=== PATIENT | female | born 1975 | race Hispanic/Latino ===

== ENCOUNTER 2018-05-06 22:29 | Emergency (ER) | payer OTHER ==
[~2018-05-06] VITALS: Ht 152.4 cm; Wt 51.3 kg
[2018-05-06] MEDS ORDERED: ONDANSETRON HCL INJ 2 MG/ML VIAL IV STA (22:35)
[2018-05-06] MEDS ORDERED: SODIUM CHLORIDE 0.9% 1000ML 1,000 ML IV STA (22:35)
[2018-05-06] MEDS ORDERED: KETOROLAC TROMETHAMINE 30 MG/ML VIAL IV STA (22:35)
--- OUTSIDE RECORDS SUMMARY | 2018-05-06 22:35 | XMS REPORT | Summary of Care ---
Author Author [facility] Organization [facility] Address Unknown Phone Unavailable Encounter GEO Farias(GRETCHEN) [phone] Date(s): 10/08/16 - 10/08/16 [facility] [address] [employer] provided by [facility] [place] [address]- Discharge Diagnosis: Left-sided weakness Discharge Disposition: Home or Self Care Attending Physician: Yomi Maloney MD Vital Signs 1 2 3 Most recent to oldest [Reference Range]: 152.4 cm (10/08/16 5:58 PM) Height 96.8 DegF (10/08/16 11:15 PM) 97.4 DegF (10/08/16 6:28 PM) Temperature Oral [96.4-99.1 DegF] 97/63 mmHg (10/08/16 11:15 PM) 110/75 mmHg (10/08/16 10:14 PM) 128/85 mmHg (10/08/16 8:24 PM) Blood Pressure [90-140/60-90 mmHg] 17 BRMIN (10/08/16 11:15 PM) 16 BRMIN (10/08/16 10:14 PM) 20 BRMIN (10/08/16 8:24 PM) Respiratory Rate [14-20 BRMIN] 61 bpm (10/08/16 6:18 PM) 63 bpm (10/08/16 6:09 PM) 76 bpm (10/08/16 5:58 PM) Peripheral Pulse Rate [60-100 bpm] 50 kg (10/08/16 5:58 PM) Weight 21.53 m2 (10/08/16 5:58 PM) Body Mass Index Problem List Condition Effective Dates Status Health Status Informant Cancer(Confirmed) Resolved TIA (transient Resolved ischemic attack)(Confirmed) Allergies, Adverse Reactions, Alerts Substance Reaction Severity Status aspirin Active morphine Active Medications ibuprofen 400 mg, Route: PO, Drug form: TAB, ONCE, Dosing Weight 50, kg, Priority: STAT, S tart date: 10/08/16 20:07:00 CDT, Stop date: 10/08/16 20:07:00 CDT Start Date: 10/08/16 Stop Date: 10/08/16 Status: Completed NS (Bolus) IV 1,000 mL, 1,000 ml/hr, Infuse Over: 1 hr, Route: IV, 1,000, Drug form: INJ, ONCE , Priority: STAT, Dosing Weight 50 kg, Start date: 10/08/16 18:44:00 CDT, Durati on: 1 doses or times, Stop date: 10/08/16 18:44:00 CDT Start Date: 10/08/16 Stop Date: 10/08/16 Status: Completed Omnipaque 350mg/ml 150 mL, Route: IVP, Drug Form: SOLN, Dosing Weight 50, kg, ONCALL, STAT, Start d ate: 10/08/16 18:35:00 CDT, Duration: 1 doses or times, Dose=2.2ml/kg, Max dose =100ml -- "To be infused by Radiology Staff ONLY" Start Date: 10/08/16 Stop Date: 10/08/16 Status: Completed Tylenol 650 mg, 2 tab, Route: PO, Drug form: TAB, ONCE, Dosing Weight 50, kg, Priority: STAT, Start date: 10/08/16 21:38:00 CDT, Stop date: 10/08/16 21:38:00 CDT Notes: Do not exceed 4 gm/day. (Same as: Tylenol) Start Date: 10/08/16 Stop Date: 10/08/16 Status: Completed Zofran ODT 4 mg, 1 tab, Route: PO, Drug form: TABDIS, ONCE, Dosing Weight 50, kg, Priority: STAT, Start date: 10/08/16 21:37:00 CDT, Stop date: 10/08/16 21:37:00 CDT Notes: (Same as: Zofran ODT) Start Date: 10/08/16 Stop Date: 10/08/16 Status: Completed Results ELECTROLYTES Most recent to 1 2 oldest [Reference Range]: Sodium Lvl [135-145 139 mEq/L mEq/L] (10/08/16 6:02 PM) Potassium Lvl 4.0 mEq/L [3.5-5.1 mEq/L] (10/08/16 6:02 PM) Chloride Lvl [95-109 107 mEq/L mEq/L] (10/08/16 6:02 PM) CO2 [24-32 mEq/L] 27 mEq/L (10/08/16 6:02 PM) AGAP [10.0-20.0 9.0 mEq/L mEq/L] *LOW* (10/08/16 6:02 PM) CHEM PANEL Most recent to 1 2 oldest [Reference Range]: Creatinine Lvl 0.86 mg/dL [0.50-1.40 mg/dL] (10/08/16 6:02 PM) eGFR 91 mL/min/1.73m2 1 84 mL/min/1.73m2 2 *NA* *NA* (10/08/16 6:03 PM) (10/08/16 6:02 PM) BUN [7-22 mg/dL] 19 mg/dL (10/08/16 6:02 PM) Glucose Lvl [70-99 92 mg/dL mg/dL] (10/08/16 6:02 PM) POC Creatinine 0.8 mg/dL [0.5-1.4 mg/dL] (10/08/16 6:03 PM) Calcium Lvl 8.9 mg/dL [8.5-10.5 mg/dL] (10/08/16 6:02 PM) Lactic Acid Lvl 0.6 mMol/L [0.5-2.2 mMol/L] (10/08/16 10:12 PM) 1Result Comment: The eGFR is calculated using the CKD-EPI formula. In most young, healthy individuals the eGFR will be >90 mL/min/1.73m2. The eGFR declines with age. An eGFR of 60-89 may be normal in some populations, particularly the elderly, for whom the CKD-EPI formula has not been extensively validated. Use of the eGFR is not recommended in the following populations: Individuals with unstable creatinine concentrations, including patients and those with serious co-morbid conditions. Patients with extremes in muscle mass or diet. The data above are obtained from the National Kid[employer] Disease Education Program ( NK[employer]) which additionally recommends that when the eGFR is used in patients with extremes of body mass index for purposes of drug dosing, the eGFR should be mul tiplied by the estimated BMI. 2Result Comment: The eGFR is calculated using the CKD-EPI formula. In most young, healthy individuals the eGFR will be >90 mL/min/1.73m2. The eGFR declines with age. An eGFR of 60-89 may be normal in some populations, particularly the elderly, for whom the CKD-EPI formula has not been extensively validated. Use of the eGFR is not recommended in the following populations: Individuals with unstable creatinine concentrations, including patients and those with serious co-morbid conditions. Patients with extremes in muscle mass or diet. The data above are obtained from the National Kidney Disease Education Program ( NKDEP) which additionally recommends that when the eGFR is used in patients with extremes of body mass index for purposes of drug dosing, the eGFR should be mul tiplied by the estimated BMI. CARDIAC ENZYMES Most recent to 1 2 oldest [Reference Range]: Troponin-I <0.02 ng/mL [0.00-0.40 ng/mL] (10/08/16 6:02 PM) HEMATOLOGY Most recent to 1 2 oldest [Reference Range]: WBC [3.7-10.4 K/CMM] 5.6 K/CMM (10/08/16 6:02 PM) RBC [4.20-5.40 4.21 M/CMM M/CMM] (10/08/16 6:02 PM) Hgb [12.0-16.0 g/dL] 13.7 g/dL (10/08/16 6:02 PM) Hct [36.0-48.0 %] 38.5 % (10/08/16 6:02 PM) MCV [80.0-98.0 fL] 91.5 fL (10/08/16 6:02 PM) MCH [27.0-31.0 pg] 32.6 pg *HI* (10/08/16 6:02 PM) MCHC [32.0-36.0 35.6 g/dL g/dL] (10/08/16 6:02 PM) RDW [11.5-14.5 %] 12.5 % (10/08/16 6:02 PM) Platelet [133-450 223 K/CMM K/CMM] (10/08/16 6:02 PM) MPV [7.4-10.4 fL] 8.3 fL (10/08/16 6:02 PM) Segs [45.0-75.0 %] 56.6 % (10/08/16 6:02 PM) Lymphocytes 31.4 % [20.0-40.0 %] (10/08/16 6:02 PM) Monocytes [2.0-12.0 5.7 % %] (10/08/16 6:02 PM) Eosinophils [0.0-4.0 5.5 % %] *HI* (10/08/16 6:02 PM) Basophils [0.0-1.0 0.8 % %] (10/08/16 6:02 PM) Segs-Bands # 3.1 K/CMM [1.5-8.1 K/CMM] (10/08/16 6:02 PM) Lymphocytes # 1.7 K/CMM [1.0-5.5 K/CMM] (10/08/16 6:02 PM) Monocytes # [0.0-0.8 0.3 K/CMM K/CMM] (10/08/16 6:02 PM) Eosinophils # 0.3 K/CMM [0.0-0.5 K/CMM] (10/08/16 6:02 PM) Immunizations Given and Recorded Vaccine Date Status Refusal Reason tetanus-diphtheria toxoids 05/16/11 Given Procedures Procedure Date Related Diagnosis Body Site Abdominal hysterectomy Tonsillectomy Social History Social History Type Response Substance Abuse Use: Past. Type: Cocaine. Recreational Drug Route: Inhaled. Smoking Status Former smoker; Type: Cigarettes; Previous treatment: Counseling; Ready to change: No; Concerns about tobacco use in household: No; Lives with someone who smokes; Cigarette Smoking Last 365 Days Yes; Reg Smoking Cessation Counseling No Assessment and Plan No data available for this section
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
--- OUTSIDE RECORDS SUMMARY | 2018-05-06 22:35 | XMS REPORT | Summary of Care ---
Author Author [facility] Organization [facility] Address Unknown Phone Unavailable Encounter GEO Farias(GRETCHEN) [id number] Date(s): 04/09/16 - 04/10/16 [facility] [address] [place] [address]- Discharge Diagnosis: Abdominal pain Discharge Diagnosis: Moderate nausea and vomiting Discharge Disposition: Home or Self Care Attending Physician: Devendra Cheatham MD Vital Signs 1 2 3 Most recent to oldest [Reference Range]: 152.4 cm (04/09/16 9:18 PM) Height 98 DegF (04/10/16 2:25 AM) 98.4 DegF (04/10/16 12:40 AM) 98.3 DegF (04/09/16 9:18 PM) Temperature Oral [96.4-99.1 DegF] 130/81 mmHg (04/10/16 2:25 AM) 123/79 mmHg (04/09/16 9:18 PM) Blood Pressure [90-140/60-90 mmHg] 125 mmHg (04/10/16 12:40 AM) Systolic Blood Pressure [90-140 mmHg] 85 mmHg (04/10/16 12:40 AM) Diastolic Blood Pressure [60-90 mmHg] 16 BRMIN (04/10/16 2:25 AM) 18 BRMIN (04/10/16 12:40 AM) 18 BRMIN (04/09/16 9:18 PM) Respiratory Rate [14-20 BRMIN] 76 bpm (04/10/16 2:25 AM) 72 bpm (04/10/16 12:40 AM) 67 bpm (04/09/16 9:18 PM) Peripheral Pulse Rate [60-100 bpm] 50 kg (04/09/16 9:18 PM) Weight 21.53 m2 (04/09/16 9:18 PM) Body Mass Index Problem List Condition Effective Dates Status Health Status Informant TIA (transient Resolved ischemic attack)(Confirmed) Allergies, Adverse Reactions, Alerts Substance Reaction Severity Status aspirin Active morphine Active Medications Bentyl 10 mg oral capsule 10 mg=1 cap, PO, QID-Before Meals, # 28 cap, 0 Refill(s) Start Date: 04/10/16 Stop Date: 04/17/16 Status: Ordered ketOROLAC 15 mg/mL injectable solution 15 mg, Route: IVP, Drug form: INJ, ONCE, Dosing Weight 50, kg, Priority: STAT, S tart date: 04/10/16 0:46:00 CDT, Stop date: 04/10/16 0:46:00 CDT Start Date: 04/10/16 Stop Date: 04/10/16 Status: Discontinued NS (Bolus) IV 1,000 mL, 1,000 ml/hr, Infuse Over: 1 hr, Route: IV, 1,000, Drug form: INJ, ONCE , Priority: STAT, Dosing Weight 50 kg, Start date: 04/09/16 21:23:00 CDT, Durati on: 1 doses or times, Stop date: 04/09/16 21:23:00 CDT Start Date: 04/09/16 Stop Date: 04/09/16 Status: Completed Pepcid 20 mg, 2 mL, Route: IV, Drug form: INJ, ONCE, Dosing Weight 50, kg, Start date: 04/09/16 21:23:00 CDT, Stop date: 04/09/16 21:23:00 CDT Notes: (Same as: Pepcid)Can be dilute in 5-10cc NS IVP: Slow IV push over at le ast 2 minutes. Start Date: 04/09/16 Stop Date: 04/09/16 Status: Completed Phenergan 12.5 mg, 0.5 mL, Route: IM, Drug form: INJ, ONCE, Dosing Weight 50, kg, Priority : STAT, Start date: 04/10/16 0:46:00 CDT, Stop date: 04/10/16 0:46:00 CDT Notes: Do not give IV push. (Same as: Phenergan) Start Date: 04/10/16 Stop Date: 04/10/16 Status: Completed Ultram 50 mg oral tablet 50 mg, 1 tab, Route: PO, Drug form: TAB, ONCE, Dosing Weight 50, kg, Priority: S TAT, Start date: 04/10/16 1:00:00 CDT, Stop date: 04/10/16 1:00:00 CDT Notes: Not to exceed 400mg/day. (Same As: Ultram) Start Date: 04/10/16 Stop Date: 04/10/16 Status: Completed Zofran 4 mg, 2 mL, Route: IVP, Drug form: INJ, ONCE, Dosing Weight 50, kg, Priority: ST AT, Start date: 04/09/16 21:23:00 CDT, Stop date: 04/09/16 21:23:00 CDT Notes: (Same as: Zofran) MEDICATION WASTE Product Size: 4 mgProduct Was vianey: ___ mg Start Date: 04/09/16 Stop Date: 04/09/16 Status: Completed Zofran ODT 4 mg oral tablet, disintegrating 4 mg=1 tab, PO, TID, Dissolve tab under tongue, X 3 day, # 9 tab, 0 Refill(s) Start Date: 04/10/16 Stop Date: 04/13/16 Status: Ordered Results ELECTROLYTES Most recent to 1 oldest [Reference Range]: Sodium Lvl [135-145 141 mEq/L mEq/L] (04/09/16 10:06 PM) Potassium Lvl 3.8 mEq/L [3.5-5.1 mEq/L] (04/09/16 10:06 PM) Chloride Lvl [95-109 106 mEq/L mEq/L] (04/09/16 10:06 PM) CO2 [24-32 mEq/L] 29 mEq/L (04/09/16 10:06 PM) AGAP [10.0-20.0 9.8 mEq/L mEq/L] *LOW* (04/09/16 10:06 PM) CHEM PANEL Most recent to 1 oldest [Reference Range]: Creatinine Lvl 0.99 mg/dL [0.50-1.40 mg/dL] (04/09/16 10:06 PM) eGFR 70 mL/min/1.73m2 1 *NA* (04/09/16 10:06 PM) BUN [7-22 mg/dL] 24 mg/dL *HI* (04/09/16 10:06 PM) B/C Ratio [6-25] 24 (04/09/16 10:06 PM) Glucose Lvl [70-99 93 mg/dL mg/dL] (04/09/16 10:06 PM) Total Protein 7.4 g/dL [6.4-8.4 g/dL] (04/09/16 10:06 PM) Albumin Lvl [3.5-5.0 3.9 g/dL g/dL] (04/09/16 10:06 PM) Globulin [2.7-4.2 3.5 g/dL g/dL] (04/09/16 10:06 PM) A/G Ratio [0.7-1.6] 1.1 (04/09/16 10:06 PM) Calcium Lvl 8.8 mg/dL [8.5-10.5 mg/dL] (04/09/16 10:06 PM) ALT [0-65 unit/L] 20 unit/L (04/09/16 10:06 PM) AST [0-37 unit/L] 12 unit/L (04/09/16 10:06 PM) Alk Phos [39-136 61 unit/L unit/L] (04/09/16 10:06 PM) Bili Total [0.2-1.3 0.3 mg/dL mg/dL] (04/09/16 10:06 PM) Lipase Lvl [73-393 152 unit/L unit/L] (04/09/16 10:06 PM) 1Result Comment: The eGFR is calculated [...] be mul tiplied by the estimated BMI. URINE AND STOOL Most recent to 1 oldest [Reference Range]: UA Turbidity [Clear] Slight Cloudy (04/09/16 10:06 PM) UA Color [Yellow] Yellow *NA* (04/09/16 10:06 PM) UA pH [5.0-8.0] 7.0 (04/09/16 10:06 PM) UA Spec Grav 1.020 [<=1.030] (04/09/16 10:06 PM) UA Glucose [Negative Negative mg/dL mg/dL] (04/09/16 10:06 PM) UA Blood [Negative] Negative (04/09/16 10:06 PM) UA Ketones [Negative Trace mg/dL mg/dL] *ABN* (04/09/16 10:06 PM) UA Protein [Negative Negative mg/dL mg/dL] (04/09/16 10:06 PM) UA Urobilinogen 0.2 EU/dL [0.1-1.0 EU/dL] (04/09/16 10:06 PM) UA Bili [Negative] Negative *NA* (04/09/16 10:06 PM) UA Leuk Est Negative [Negative] (04/09/16 10:06 PM) UA Nitrite Negative [Negative] (04/09/16 10:06 PM) UA WBC [None Seen 0-2 /HPF /HPF] (04/09/16 10:06 PM) UA RBC [0-2 /HPF] 0-2 /HPF (04/09/16 10:06 PM) UA Bacteria [None Occasional /HPF Seen /HPF] (04/09/16 10:06 PM) UA Sq Epi [Few /LPF] Many /LPF *ABN* (04/09/16 10:06 PM) UA Amorph Audra [None Occasional /HPF Seen /HPF] *ABN* (04/09/16 10:06 PM) UA Mucus [None Seen Rare /LPF /LPF] (04/09/16 10:06 PM) Micro? Performed (04/09/16 10:06 PM) HEMATOLOGY Most recent to 1 oldest [Reference Range]: WBC [3.7-10.4 K/CMM] 5.5 K/CMM (04/09/16 10:06 PM) RBC [4.20-5.40 4.48 M/CMM M/CMM] (04/09/16 10:06 PM) Hgb [12.0-16.0 g/dL] 14.1 g/dL (04/09/16 10:06 PM) Hct [36.0-48.0 %] 41.7 % (04/09/16 10:06 PM) MCV [80.0-98.0 fL] 93.2 fL (04/09/16 10:06 PM) MCH [27.0-31.0 pg] 31.4 pg *HI* (04/09/16 10:06 PM) MCHC [32.0-36.0 33.7 g/dL g/dL] (04/09/16 10:06 PM) RDW [11.5-14.5 %] 12.7 % (04/09/16 10:06 PM) Platelet [133-450 219 K/CMM K/CMM] (04/09/16 10:06 PM) MPV [7.4-10.4 fL] 8.7 fL (04/09/16 10:06 PM) Segs [45.0-75.0 %] 58.4 % (04/09/16 10:06 PM) Lymphocytes 30.0 % [20.0-40.0 %] (04/09/16 10:06 PM) Monocytes [2.0-12.0 5.4 % %] (04/09/16 10:06 PM) Eosinophils [0.0-4.0 5.6 % %] *HI* (04/09/16 10:06 PM) Basophils [0.0-1.0 0.6 % %] (04/09/16 10:06 PM) Segs-Bands # 3.2 K/CMM [1.5-8.1 K/CMM] (04/09/16 10:06 PM) Lymphocytes # 1.7 K/CMM [1.0-5.5 K/CMM] (04/09/16 10:06 PM) Monocytes # [0.0-0.8 0.3 K/CMM K/CMM] (04/09/16 10:06 PM) Eosinophils # 0.3 K/CMM [0.0-0.5 K/CMM] (04/09/16 10:06 PM) Immunizations Given and Recorded Vaccine Date [...]
--- OUTSIDE RECORDS SUMMARY | 2018-05-06 22:35 | XMS REPORT | Summary of Care ---
Author Author [facility] Organization [facility] Address Unknown Phone Unavailable Encounter GEO Farias(GRETCHEN) [id number] Date(s): 08/03/16 - 08/04/16 [facility] [address] [place] [address]- Discharge Diagnosis: Abdominal pain, LLQ Discharge Diagnosis: Nausea and vomiting Discharge Diagnosis: Acute diarrhea Discharge Disposition: Home or Self Care Attending Physician: Mohan Wu MD Vital Signs Most recent to 1 2 oldest [Reference Range]: Height 152.4 cm (08/03/16 6:46 PM) Temperature Oral 97.7 DegF 98.1 DegF [96.4-99.1 DegF] (08/04/16 12:29 AM) (08/03/16 6:46 PM) Blood Pressure 116/71 mmHg 141/95 mmHg [90-140/60-90 mmHg] (08/04/16 12:29 AM) *HI* (08/03/16 6:46 PM) Respiratory Rate 20 BRMIN 20 BRMIN [14-20 BRMIN] (08/04/16 12:29 AM) (08/03/16 6:46 PM) Peripheral Pulse 75 bpm 72 bpm Rate [60-100 bpm] (08/04/16 12:29 AM) (08/03/16 6:46 PM) Weight 50 kg (08/03/16 6:46 PM) Body Mass Index 21.53 m2 (08/03/16 6:46 PM) Problem List Condition Effective Dates Status Health Status Informant Cancer(Confirmed) Resolved TIA (transient Resolved ischemic attack)(Confirmed) Allergies, Adverse Reactions, Alerts Substance Reaction Severity Status aspirin Active morphine Active Medications acetaminophen-hydrocodone 325 mg-5 mg oral tablet 1 tab, Route: PO, Drug Form: TAB, Dosing Weight 50, kg, ONCE, STAT, Start date: 08/04/16 0:07:00 [employer], Stop date: 08/04/16 0:07:00 [employer] Notes: (Same as: [place] 325/5) Do not exceed 4gm/day of acetaminophen. Start Date: 08/04/16 Stop Date: 08/04/16 Status: Completed ketOROLAC 15 mg, 0.5 mL, Route: IVP, Drug form: INJ, ONCE, Dosing Weight 50, kg, Priority: STAT, Start date: 08/03/16 21:53:00 [employer], Stop date: 08/03/16 21:53:00 [employer] Notes: (Same as:Toradol) IV bolus must be given >15 seconds. Give IM administration slowly and deeply into the muscle.Not for use > 4 days MEDICATION WASTE Product Size: 30 mgProduct Wasted: ___ mg Start Date: 08/03/16 Stop Date: 08/03/16 Status: Completed ondansetron 4 mg, 2 mL, Route: IVP, Drug form: INJ, ONCE, Dosing Weight 50, kg, Priority: ST AT, Start date: 08/03/16 21:53:00 [employer], Stop date: 08/03/16 21:53:00 [employer] Notes: (Same as: Zofran) MEDICATION WASTE Product Size: 4 mgProduct Was vianey: ___ mg Start Date: 08/03/16 Stop Date: 08/03/16 Status: Completed Saline Flush 0.9% 10 mL, Route: IVP, Drug Form: INJ, Dosing Weight 50, kg, PRN, PRN Line Flush, St art date: 08/03/16 19:06:00 [employer], Duration: 30 day, Stop date: 09/02/16 19:05:00 [employer] Notes: Same as: BD Posiflush Sterile Start Date: 08/03/16 Stop Date: 08/04/16 Status: Discontinued Sodium Chloride 0.9% (Bolus) IV 1,000 mL, 1000 ml/hr, Infuse Over: 1 hr, Route: IV, 1,000, Drug form: INJ, ONCE, Priority: STAT, Dosing Weight 50 kg, Start date: 08/03/16 21:53:00 [employer], Duratio n: 1 doses or times, Stop date: 08/03/16 21:53:00 [employer] Start Date: 08/03/16 Stop Date: 08/03/16 Status: Completed tramadol 50 mg oral tablet 50 mg, PO, Q4-6H, PRN Pain, X 4 day, # 20 tab, 0 Refill(s) Start Date: 08/04/16 Stop Date: 08/08/16 Status: Ordered Tylenol with Codeine #3 oral tablet 1 tab, PO, Q4H, PRN Pain, # 24 tab, 0 Refill(s) Start Date: 08/04/16 Stop Date: 08/04/16 Status: Completed Zofran ODT 4 mg oral tablet, disintegrating 4 mg=1 tab, PO, Q8H, PRN Nausea and Vomiting, Dissolve tab under tongue, # 10 ta b, 0 Refill(s) Start Date: 08/04/16 Stop Date: 08/04/16 Status: Completed Results ELECTROLYTES Most recent to 1 oldest [Reference Range]: Sodium Lvl [135-145 142 mEq/L mEq/L] (08/03/16 9:21 PM) Potassium Lvl 3.6 mEq/L [3.5-5.1 mEq/L] (08/03/16 9:21 PM) Chloride Lvl [95-109 106 mEq/L mEq/L] (08/03/16 9:21 PM) CO2 [24-32 mEq/L] 29 mEq/L (08/03/16 9:21 PM) AGAP [10.0-20.0 10.6 mEq/L mEq/L] (08/03/16 9:21 PM) CHEM PANEL Most recent to 1 oldest [Reference Range]: Creatinine Lvl 0.73 mg/dL [0.50-1.40 mg/dL] (08/03/16 9:21 PM) eGFR 102 mL/min/1.73m2 1 *NA* (08/03/16 9:21 PM) BUN [7-22 mg/dL] 22 mg/dL (08/03/16 9:21 PM) B/C Ratio [6-25] 30 *HI* (08/03/16 9:21 PM) Glucose Lvl [70-99 117 mg/dL mg/dL] *HI* (08/03/16 9:21 PM) Total Protein 6.7 g/dL [6.4-8.4 g/dL] (08/03/16 9:21 PM) Albumin Lvl [3.5-5.0 3.4 g/dL g/dL] *LOW* (08/03/16 PM) Globulin [2.7-4.2 3.3 g/dL g/dL] (08/03/16 9:21 PM) A/G Ratio [0.7-1.6] 1.0 (08/03/16 PM) Calcium Lvl 8.0 mg/dL [8.5-10.5 mg/dL] *LOW* (08/03/16: PM) ALT [0-65 unit/L] 22 unit/L (08/03/16 PM) AST [0-37 unit/L] 16 unit/L (08/03/16 PM) Alk Phos [39-136 48 unit/L unit/L] (08/03/16 PM) Bili Total [0.2-1.3 0.3 mg/dL mg/dL] (08/03/16 PM) Lipase Lvl [73-393 202 unit/L unit/L] (08/03/16 PM) 1Result Comment: The eGFR is calculated [...] be mul tiplied by the estimated BMI. ENDOCRINOLOGY Most recent to 1 oldest [Reference Range]: S Preg [Negative] Negative *NA* (08/03/16 9:21 PM) URINE AND STOOL Most recent to 1 oldest [Reference Range]: UA Turbidity [Clear] Clear (2/9/17 9:21 PM) UA Color [Yellow] Yellow *NA* (08/03/16 9:21 PM) UA pH [5.0-8.0] 8.0 (08/03/16 9:21 PM) UA Spec Grav 1.010 [<=1.030] (08/03/16 9:21 PM) UA Glucose [Negative Negative mg/dL mg/dL] (08/03/16 9:21 PM) UA Blood [Negative] Negative (08/03/16 9:21 PM) UA Ketones [Negative Negative mg/dL mg/dL] *NA* (08/03/16:21 PM) UA Protein [Negative Negative mg/dL mg/dL] (08/03/16 9:21 PM) UA Urobilinogen 0.2 EU/dL [0.1-1.0 EU/dL] (08/03/16 9:21 PM) UA Bili [Negative] Negative *NA* (08/03/16:21 PM) UA Leuk Est Negative [Negative] (08/03/16:21 PM) UA Nitrite Negative [Negative] (08/03/16 9:21 PM) UA WBC [None Seen 0-2 /HPF /HPF] (08/03/16 9:21 PM) UA RBC [0-2 /HPF] 0-2 /HPF (08/03/16 9:21 PM) UA Bacteria [None Few /HPF Seen /HPF] (08/03/16 9:21 PM) UA Sq Epi [Few /LPF] Few /LPF (08/03/16 9:21 PM) UA Amorph Audra [None Occasional /HPF Seen /HPF] *ABN* (08/03/16 9:21 PM) UA Mucus [None Seen Few /LPF /LPF] (08/03/16 9:21 PM) HEMATOLOGY Most recent to 1 oldest [Reference Range]: WBC [3.7-10.4 K/CMM] 5.3 K/CMM (08/03/16 9:21 PM) RBC [4.20-5.40 3.92 M/CMM M/CMM] *LOW* (08/03/16 9:21 PM) Hgb [12.0-16.0 g/dL] 12.7 g/dL (08/03/16 9:21 PM) Hct [36.0-48.0 %] 36.3 % (08/03/16 9:21 PM) MCV [80.0-98.0 fL] 92.5 fL (08/03/16 9:21 PM) MCH [27.0-31.0 pg] 32.4 pg *HI* (08/03/16 9:21 PM) MCHC [32.0-36.0 35.1 g/dL g/dL] (08/03/16 9:21 PM) RDW [11.5-14.5 %] 12.2 % (08/03/16 9:21 PM) Platelet [133-450 218 K/CMM K/CMM] (08/03/16 9:21 PM) MPV [7.4-10.4 fL] 8.1 fL (08/03/16 9:21 PM) Segs [45.0-75.0 %] 49.2 % (08/03/16 9:21 PM) Lymphocytes 40.6 % [20.0-40.0 %] *HI* (08/03/16 9:21 PM) Monocytes [2.0-12.0 5.1 % %] (08/03/16 9:21 PM) Eosinophils [0.0-4.0 4.7 % %] *HI* (08/03/16 9:21 PM) Basophils [0.0-1.0 0.4 % %] (08/03/16 9:21 PM) Segs-Bands # 2.6 K/CMM [1.5-8.1 K/CMM] (08/03/16 9:21 PM) Lymphocytes # 2.2 K/CMM [1.0-5.5 K/CMM] (08/03/16 9:21 PM) Monocytes # [0.0-0.8 0.3 K/CMM K/CMM] (08/03/16 9:21 PM) Eosinophils # 0.2 K/CMM [0.0-0.5 K/CMM] (08/03/16 9:21 PM) Immunizations Given and Recorded Vaccine Date Status Refusal Reason tetanus-diphtheria toxoids 05/16/11 Given Procedures Procedure Date Related Diagnosis Body Site Abdominal hysterectomy Tonsillectomy Social History Social History Type Response Substance Abuse Use: Past. Type: Cocaine. Recreational Drug Route: Inhaled. Smoking Status Never smoker; Type: Cigarettes; Previous treatment: None; Ready to change: No; Concerns about tobacco use in household: No; Exposure to Tobacco Smoke None; Cigarette Smoking Last 365 Days No; Reg Smoking Cessation Counseling No Assessment and Plan No data available for this section
--- OUTSIDE RECORDS SUMMARY | 2018-05-06 22:35 | XMS REPORT | Summary of Care ---
Author Author [facility] Organization [facility] Address Unknown Phone Unavailable Encounter HQ Soco_chris(FIN) [id number] Date(s): 11/23/17 - 11/23/17 [facility] [address] [place] [id number] Discharge Disposition: Home or Self Care Attending Physician: Darian Villalta MD Referring Physician: Darian Villalta MD Vital Signs No data available for this section Problem List Condition Effective Dates Status Health Status Informant Cancer(Confirmed) Resolved TIA (transient Resolved ischemic attack)(Confirmed) Allergies, Adverse Reactions, Alerts Substance Reaction Severity Status morphine Active aspirin Active Medications No data available for this section Results No data available for this section Immunizations Given and Recorded Vaccine Date Status Refusal Reason tetanus-diphtheria toxoids 05/16/11 Given Procedures Procedure Date Related Diagnosis Body Site Status Abdominal hysterectomy Completed Tonsillectomy Completed Social History Social History Type Response Substance Abuse Use: Past. Type: Cocaine. Recreational Drug Route: Inhaled. Smoking Status Former smoker; Type: Cigarettes; Previous treatment: Counseling; Ready to change: No; Concerns about tobacco use in household: No; Lives with someone who smokes; Cigarette Smoking Last 365 Days Yes; Reg Smoking Cessation Counseling No entered on: 10/08/16 Assessment and Plan No data available for this section
--- OUTSIDE RECORDS SUMMARY | 2018-05-06 22:35 | XMS REPORT | Summary of Care ---
Author Author [facility] Organization [facility] Address Unknown Phone Unavailable Encounter GEO Farias(GRETCHEN) [id number] Date(s): 04/07/16 - 04/07/16 [facility] [address] [place] [address]- [phone] Discharge Diagnosis: Abdominal pain Discharge Diagnosis: Constipation Discharge Diagnosis: Bacterial vaginosis Discharge Disposition: Home or Self Care Attending Physician: Shankar Bowman DO Vital Signs Most recent to 1 2 oldest [Reference Range]: Height 152.4 cm (04/07/16 7:48 PM) Temperature Oral 98.0 DegF 97.5 DegF [96.4-99.1 DegF] (04/07/16 11:36 PM) (04/07/16 7:48 PM) Blood Pressure 133/77 mmHg [90-140/60-90 mmHg] (04/07/16 7:48 PM) Systolic Blood 145 mmHg Pressure [90-140 *HI* mmHg] (04/07/16 11:36 PM) Diastolic Blood 86 mmHg Pressure [60-90 (04/07/16 11:36 PM) mmHg] Respiratory Rate 18 BRMIN 19 BRMIN [14-20 BRMIN] (04/07/16 11:36 PM) (04/07/16 7:48 PM) Peripheral Pulse 67 bpm 65 bpm Rate [60-100 bpm] (04/07/16 11:36 PM) (04/07/16 7:48 PM) Weight 50 kg (04/07/16 7:48 PM) Body Mass Index 21.53 m2 (04/07/16 7:48 PM) Problem List Condition Effective Dates Status Health Status Informant TIA (transient Resolved ischemic attack)(Confirmed) Allergies, Adverse Reactions, Alerts Substance Reaction Severity Status aspirin Active morphine Active Medications Dilaudid 0.5 mg, 0.25 mL, Route: IVP, Drug form: INJ, ONCE, Dosing Weight 50, kg, Priorit y: STAT, Start date: 04/07/16 22:10:00 CDT, Stop date: 04/07/16 22:10:00 CDT Notes: (Same as: Dilaudid) Start Date: 04/07/16 Stop Date: 04/07/16 Status: Completed Flagyl 500 mg oral tablet 500 mg=1 tab, PO, BID, X 7 day, # 14 tab, 0 Refill(s) Start Date: 04/07/16 Stop Date: 04/14/16 Status: Ordered ketOROLAC 15 mg, 0.5 mL, Route: IVP, Drug form: INJ, ONCE, Dosing Weight 50, kg, Priority: STAT, Start date: 04/07/16 19:55:00 CDT, Stop date: 04/07/16 19:55:00 CDT Notes: (Same as:Toradol) IV bolus must be given >15 seconds. Give IM administration slowly and deeply into the muscle.Not for use > 4 days MEDICATION WASTE Product Size: 30 mgProduct Wasted: ___ mg Start Date: 04/07/16 Stop Date: 04/07/16 Status: Completed NS (Bolus) IV 1,000 mL, 1,000 ml/hr, Infuse Over: 1 hr, Route: IV, 1,000, Drug form: INJ, ONCE , Priority: STAT, Dosing Weight 50 kg, Start date: 04/07/16 20:04:00 CDT, Durati on: 1 doses or times, Stop date: 04/07/16 20:04:00 CDT Start Date: 04/07/16 Stop Date: 04/07/16 Status: Completed Omnipaque 300 100 mL, Route: IV, Drug Form: SOLN, ONCALL, Start date: 04/07/16 22:00:00 CDT, D uration: 2 day, Stop date: 04/09/16 21:59:00 CDT Notes: (Same as:Omnipaque 300).WASTE: F/P - Black; E - Municipal Trash Bin Start Date: 04/07/16 Stop Date: 04/07/16 Status: Completed ondansetron 4 mg, 2 mL, Route: IVP, Drug form: INJ, ONCE, Dosing Weight 42.727, kg, Priority : STAT, Start date: 04/07/16 19:54:00 CDT, Stop date: 04/07/16 19:54:00 CDT Notes: (Same as: Elizabeth) MEDICATION WASTE Product Size: 4 mgProduct Was vianey: ___ mg Start Date: 04/07/16 Stop Date: 04/07/16 Status: Completed Saline Flush 0.9% 10 mL, Route: IVP, Drug Form: INJ, Dosing Weight 42.727, kg, PRN, PRN Line Flush , Start date: 04/07/16 19:54:00 CDT, Duration: 30 day, Stop date: 05/07/16 18:53 :00 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 Notes: Same as: BD Posiflush Sterile Start Date: 04/07/16 Stop Date: 04/08/16 Status: Discontinued Sodium Chloride 0.9% (Bolus) IV 1,000 mL, 2,000 ml/hr, Infuse Over: 30 minutes, Route: IV, 1,000, Drug form: INJ , ONCE, Priority: STAT, Dosing Weight 42.727 kg, Start date: 04/07/16 19:54:00 C DT, Duration: 1 doses or times, Stop date: 04/07/16 19:54:00 CDT Start Date: 04/07/16 Stop Date: 04/07/16 Status: Completed tramadol 50 mg oral tablet 50 mg=1 tab, PO, Q8H, PRN Pain, X 5 day, # 15 tab, 0 Refill(s) Start Date: 04/07/16 Stop Date: 04/12/16 Status: Ordered Results ELECTROLYTES Most recent to 1 oldest [Reference Range]: Sodium Lvl [135-145 141 mEq/L mEq/L] (04/07/16 8:13 PM) Potassium Lvl 3.9 mEq/L [3.5-5.1 mEq/L] (04/07/16 8:13 PM) Chloride Lvl [95-109 106 mEq/L mEq/L] (04/07/16 8:13 PM) CO2 [24-32 mEq/L] 27 mEq/L (04/07/16 8:13 PM) AGAP [10.0-20.0 11.9 mEq/L mEq/L] (04/07/16 8:13 PM) CHEM PANEL Most recent to 1 oldest [Reference Range]: Creatinine Lvl 0.89 mg/dL [0.50-1.40 mg/dL] (04/07/16 8:13 PM) eGFR 80 mL/min/1.73m2 1 *NA* (04/07/16 8:13 PM) BUN [7-22 mg/dL] 21 mg/dL (04/07/16 8:13 PM) B/C Ratio [6-25] 24 (04/07/16 8:13 PM) Glucose Lvl [70-99 88 mg/dL mg/dL] (04/07/16 8:13 PM) Total Protein 7.4 g/dL [6.4-8.4 g/dL] (04/07/16 8:13 PM) Albumin Lvl [3.5-5.0 3.8 g/dL g/dL] (04/07/16 8:13 PM) Globulin [2.7-4.2 3.6 g/dL g/dL] (04/07/16 8:13 PM) A/G Ratio [0.7-1.6] 1.1 (04/07/16 8:13 PM) Calcium Lvl 9.1 mg/dL [8.5-10.5 mg/dL] (04/07/16 8:13 PM) ALT [0-65 unit/L] 24 unit/L (04/07/16 8:13 PM) AST [0-37 unit/L] 18 unit/L (04/07/16 8:13 PM) Alk Phos [39-136 66 unit/L unit/L] (04/07/16 8:13 PM) Bili Total [0.2-1.3 0.2 mg/dL mg/dL] (04/07/16 8:13 PM) Lipase Lvl [73-393 272 unit/L unit/L] (04/07/16 8:13 PM) 1Result Comment: The eGFR is calculated [...] oldest [Reference Range]: UA Turbidity [Clear] Clear (04/07/16 9:07 PM) UA Color [Yellow] Yellow *NA* (04/07/16 9:07 PM) UA pH [5.0-8.0] 8.5 *HI* (04/07/16 9:07 PM) UA Spec Grav 1.015 [<=1.030] (04/07/16 9:07 PM) UA Glucose [Negative Negative mg/dL mg/dL] (04/07/16 9:07 PM) UA Blood [Negative] Negative (04/07/16 9:07 PM) UA Ketones [Negative Negative mg/dL mg/dL] *NA* (04/07/16 9:07 PM) UA Protein [Negative Negative mg/dL mg/dL] (04/07/16 9:07 PM) UA Urobilinogen 0.2 EU/dL [0.1-1.0 EU/dL] (04/07/16 9:07 PM) UA Bili [Negative] Negative *NA* (04/07/16 9:07 PM) UA Leuk Est Negative [Negative] (04/07/16 9:07 PM) UA Nitrite Negative [Negative] (04/07/16 9:07 PM) UA WBC [None Seen 0-2 /HPF /HPF] (04/07/16 9:07 PM) UA RBC [0-2 /HPF] 0-2 /HPF (04/07/16 9:07 PM) UA Bacteria [None Occasional /HPF Seen /HPF] (04/07/16 9:07 PM) UA Sq Epi [Few /LPF] Moderate /LPF *ABN* (04/07/16 9:07 PM) HEMATOLOGY Most recent to 1 oldest [Reference Range]: WBC [3.7-10.4 K/CMM] 6.5 K/CMM (04/07/16 8:13 PM) RBC [4.20-5.40 4.42 M/CMM M/CMM] (04/07/16 8:13 PM) Hgb [12.0-16.0 g/dL] 14.2 g/dL (04/07/16 8:13 PM) Hct [36.0-48.0 %] 41.0 % (04/07/16 8:13 PM) MCV [80.0-98.0 fL] 92.6 fL (04/07/16 8:13 PM) MCH [27.0-31.0 pg] 32.1 pg *HI* (04/07/16 PM) MCHC [32.0-36.0 34.6 g/dL g/dL] (04/07/16 8:13 PM) RDW [11.5-14.5 %] 12.5 % (04/07/16 8:13 PM) Platelet [133-450 258 K/CMM K/CMM] (04/07/16 8:13 PM) MPV [7.4-10.4 fL] 9.2 fL (04/07/16 8:13 PM) Segs [45.0-75.0 %] 52.2 % (04/07/16 8:13 PM) Lymphocytes 36.3 % [20.0-40.0 %] (04/07/16 8:13 PM) Monocytes [2.0-12.0 5.6 % %] (04/07/16 8:13 PM) Eosinophils [0.0-4.0 5.2 % %] *HI* (04/07/16:13 PM) Basophils [0.0-1.0 0.7 % %] (04/07/16 8:13 PM) Segs-Bands # 3.4 K/CMM [1.5-8.1 K/CMM] (04/07/16 8:13 PM) Lymphocytes # 2.4 K/CMM [1.0-5.5 K/CMM] (04/07/16 8:13 PM) Monocytes # [0.0-0.8 0.4 K/CMM K/CMM] (04/07/16 8:13 PM) Eosinophils # 0.3 K/CMM [0.0-0.5 K/CMM] (04/07/16 8:13 PM) PT [12.0-14.7 12.3 seconds seconds] (04/07/16 8:13 PM) INR [0.85-1.17] 0.90 (04/07/16 8:13 PM) PTT [22.9-35.8 30.1 seconds seconds] (04/07/16 8:13 PM) Immunizations Given and Recorded Vaccine Date Status Refusal Reason tetanus-diphtheria toxoids 05/16/11 Given Procedures Procedure Date Related Diagnosis Body Site Abdominal hysterectomy Tonsillectomy Social History Social History Type Response Substance Abuse Use: Past. Type: Cocaine. Recreational Drug Route: Inhaled. Smoking Status Current every day smoker; Type: Cigarettes; Previous treatment: Counseling; Ready to change: No; Concerns about tobacco use in household: No; Lives with someone who smokes; Cigarette Smoking Last 365 Days Yes; Reg Smoking Cessation Counseling Yes Assessment and Plan No data available for this section
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
--- OUTSIDE RECORDS SUMMARY | 2018-05-06 22:35 | XMS REPORT | Summary of Care ---
Author Author [facility] Organization [facility] Address Unknown Phone Unavailable Encounter GEO Farias(GRETCHEN) [id number] Date(s): 06/21/16 - 06/22/16 [facility] [address] [place] [address]- Discharge Diagnosis: Cyst, ovarian Discharge Disposition: Home or Self Care Attending Physician: Bryan Dupree MD Vital Signs 1 2 3 Most recent to oldest [Reference Range]: 98.1 DegF (06/22/16 12:24 AM) Temperature Oral [96.4-99.1 DegF] 133/83 mmHg (06/22/16 9:13 AM) 117/80 mmHg (06/22/16 6:37 AM) 117/80 mmHg (06/22/16 6:33 AM) Blood Pressure [90-140/60-90 mmHg] 17 BRMIN (06/22/16 6:37 AM) 17 BRMIN (06/22/16 6:33 AM) 16 BRMIN (06/22/16 12:24 AM) Respiratory Rate [14-20 BRMIN] 80 bpm (06/22/16 9:13 AM) 78 bpm (06/22/16 6:37 AM) 75 bpm (06/22/16 6:33 AM) Peripheral Pulse Rate [60-100 bpm] 50 kg (06/22/16 12:24 AM) Weight Problem List Condition Effective Dates Status Health Status Informant Cancer(Confirmed) Resolved TIA (transient Resolved ischemic attack)(Confirmed) Allergies, Adverse Reactions, Alerts Substance Reaction Severity Status aspirin Active morphine Active Medications Dilaudid 0.5 mg, 0.25 mL, Route: IVP, Drug form: INJ, ONCE, Dosing Weight 50, kg, Priorit y: STAT, Start date: 06/22/16 6:36:00 ELECTROLYSIS INVESTIGATOR, Stop date: 06/22/16 6:36:00 ELECTROLYSIS INVESTIGATOR Notes: Same as Dilaudid Start Date: 06/22/16 Stop Date: 06/22/16 Status: Completed NS (Bolus) IV 1,000 mL, 1,000 ml/hr, Infuse Over: 1 hr, Route: IV, 1,000, Drug form: INJ, ONCE , Priority: STAT, Dosing Weight 50 kg, Start date: 06/22/16 6:35:00 ELECTROLYSIS INVESTIGATOR, Duratio n: 1 doses or times, Stop date: 06/22/16 6:35:00 ELECTROLYSIS INVESTIGATOR Start Date: 06/22/16 Stop Date: 06/22/16 Status: Completed Omnipaque 300 100 mL, 200 ml/hr, Route: IV, Drug Form: SOLN, ONCALL, Start date: 06/22/16 8:00 :00 ELECTROLYSIS INVESTIGATOR, Duration: 30 day, Stop date: 07/22/16 7:59:00 ELECTROLYSIS INVESTIGATOR Notes: (Same as:Omnipaque 300).WASTE: F/P - Black; E - Municipal Trash Bin Start Date: 06/22/16 Stop Date: 06/22/16 Status: Completed tramadol 50 mg oral tablet 50 mg=1 tab, PO, Q6H, PRN Pain, X 10 day, # 40 tab, 0 Refill(s) Start Date: 06/22/16 Stop Date: 07/02/16 Status: Ordered Zofran 4 mg, 2 mL, Route: IVP, Drug form: INJ, ONCE, Dosing Weight 50, kg, Priority: ST AT, Start date: 06/22/16 6:36:00 ELECTROLYSIS INVESTIGATOR, Stop date: 06/22/16 6:36:00 ELECTROLYSIS INVESTIGATOR Notes: (Same as: Zofran) MEDICATION WASTE Product Size: 4 mgProduct Was vianey: ___ mg Start Date: 06/22/16 Stop Date: 06/22/16 Status: Completed Zofran 4 mg, 2 mL, Route: IVP, Drug form: INJ, ONCE, Dosing Weight 50, kg, Priority: ST AT, Start date: 06/22/16 9:16:00 ELECTROLYSIS INVESTIGATOR, Stop date: 06/22/16 9:16:00 ELECTROLYSIS INVESTIGATOR Notes: (Same as: Zofran) MEDICATION WASTE Product Size: 4 mgProduct Was vianey: ___ mg Start Date: 06/22/16 Stop Date: 06/22/16 Status: Completed Results ELECTROLYTES Most recent to 1 oldest [Reference Range]: Sodium Lvl [135-145 140 mEq/L mEq/L] (06/22/16 6:23 AM) Potassium Lvl 3.7 mEq/L [3.5-5.1 mEq/L] (06/22/16 6:23 AM) Chloride Lvl [95-109 108 mEq/L mEq/L] (06/22/16 6:23 AM) CO2 [24-32 mEq/L] 23 mEq/L *LOW* (06/22/16 6:23 AM) AGAP [10.0-20.0 12.7 mEq/L mEq/L] (06/22/16 6:23 AM) CHEM PANEL Most recent to 1 oldest [Reference Range]: Creatinine Lvl 0.58 mg/dL [0.50-1.40 mg/dL] (06/22/16 6:23 AM) eGFR 114 mL/min/1.73m2 1 *NA* (06/22/16 6:23 AM) BUN [7-22 mg/dL] 21 mg/dL (06/22/16 6:23 AM) B/C Ratio [6-25] 36 *HI* (06/22/16 6:23 AM) Glucose Lvl [70-99 108 mg/dL mg/dL] *HI* (06/22/16 6:23 AM) Total Protein 6.5 g/dL [6.4-8.4 g/dL] (06/22/16 6:23 AM) Albumin Lvl [3.5-5.0 3.5 g/dL g/dL] (06/22/16 6:23 AM) Globulin [2.7-4.2 3.0 g/dL g/dL] (06/22/16 6:23 AM) A/G Ratio [0.7-1.6] 1.2 (06/22/16 6:23 AM) Calcium Lvl 8.3 mg/dL [8.5-10.5 mg/dL] *LOW* (06/22/16 6:23 AM) ALT [0-65 unit/L] 20 unit/L (06/22/16 6:23 AM) AST [0-37 unit/L] 17 unit/L (06/22/16 6:23 AM) Alk Phos [39-136 51 unit/L unit/L] (06/22/16 6:23 AM) Bili Total [0.2-1.3 0.4 mg/dL mg/dL] (06/22/16 6:23 AM) Lipase Lvl [73-393 219 unit/L unit/L] (06/22/16 6:23 AM) 1Result Comment: The eGFR is calculated using [...] [Reference Range]: S Preg [Negative] Negative *NA* (06/22/16 6:23 AM) URINE AND STOOL Most recent to 1 oldest [Reference Range]: UA Turbidity [Clear] Slight Cloudy (06/22/16 6:23 AM) UA Color [Yellow] Yellow *NA* (06/22/16 6:23 AM) UA pH [5.0-8.0] 5.5 (06/22/16 6:23 AM) UA Spec Grav >=1.030 [<=1.030] *ABN* (06/22/16 6:23 AM) UA Glucose Negative [Negative] (06/22/16 6:23 AM) UA Blood [Negative] Small *ABN* (06/22/16 6:23 AM) UA Ketones Negative [Negative] *NA* (06/22/16 6:23 AM) UA Protein Negative [Negative] (06/22/16 6:23 AM) UA Urobilinogen 0.2 EU/dL [0.1-1.0 EU/dL] (06/22/16 6:23 AM) UA Bili [Negative] Negative *NA* (06/22/16 6:23 AM) UA Leuk Est Negative [Negative] (06/22/16 6:23 AM) UA Nitrite Negative [Negative] (06/22/16 6:23 AM) UA WBC [None Seen 0-2 /HPF /HPF] (06/22/16 6:23 AM) UA RBC [0-2 /HPF] 3-5 /HPF *ABN* (06/22/16 6:23 AM) UA Bacteria [None Moderate /HPF Seen /HPF] (06/22/16 6:23 AM) UA Sq Epi [Few /LPF] Many /LPF *ABN* (06/22/16 6:23 AM) UA Mucus [None Seen Few /LPF /LPF] (06/22/16 6:23 AM) HEMATOLOGY Most recent to 1 oldest [Reference Range]: WBC [3.7-10.4 K/CMM] 5.1 K/CMM (06/22/16 6:23 AM) RBC [4.20-5.40 4.11 M/CMM M/CMM] *LOW* (06/22/16 6:23 AM) Hgb [12.0-16.0 g/dL] 13.2 g/dL (06/22/16 6:23 AM) Hct [36.0-48.0 %] 38.3 % (06/22/16 6:23 AM) MCV [80.0-98.0 fL] 93.2 fL (06/22/16 6:23 AM) MCH [27.0-31.0 pg] 32.2 pg *HI* (06/22/16 6:23 AM) MCHC [32.0-36.0 34.6 g/dL g/dL] (06/22/16 6:23 AM) RDW [11.5-14.5 %] 12.8 % (06/22/16 6:23 AM) Platelet [133-450 189 K/CMM K/CMM] (06/22/16 6:23 AM) MPV [7.4-10.4 fL] 8.1 fL (06/22/16 6:23 AM) Segs [45.0-75.0 %] 45.9 % (06/22/16 6:23 AM) Lymphocytes 38.6 % [20.0-40.0 %] (06/22/16 6:23 AM) Monocytes [2.0-12.0 7.4 % %] (06/22/16 6:23 AM) Eosinophils [0.0-4.0 7.5 % %] *HI* (06/22/16 6:23 AM) Basophils [0.0-1.0 0.6 % %] (06/22/16 6:23 AM) Segs-Bands # 2.3 K/CMM [1.5-8.1 K/CMM] (06/22/16 6:23 AM) Lymphocytes # 2.0 K/CMM [1.0-5.5 K/CMM] (06/22/16 6:23 AM) Monocytes # [0.0-0.8 0.4 K/CMM K/CMM] (06/22/16 6:23 AM) Eosinophils # 0.4 K/CMM [0.0-0.5 K/CMM] (06/22/16 6:23 AM) Immunizations Given and Recorded Vaccine Date Status [...]
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
--- OUTSIDE RECORDS SUMMARY | 2018-05-06 22:36 | XMS REPORT ---
Demographics Address [address] [place] [address] Preferred Language Unknown Marital Status Unknown Moravian Affiliation Unknown Race Unknown Ethnic Group Unknown Author [facility] Address Unknown Phone Unavailable Care Team Providers Care Lapel Baster Name Role Phone Unavailable Unavailable Problems This patient has no known problems. Allergies, Adverse Reactions, Alerts This patient has no known allergies or adverse reactions. Medications This patient has no known medications. Encounters Start Date/Time End Date/Time Encounter Type Admission Type Attending [facility] Facility Care Department Encounter ID 2017-12-21 05:00:13 2017-12-21 05:00:13 Emergency [facility] [id number] 2017-12-21 00:00:00 2017-12-21 00:00:00 Emergency [facility] [id number] 2017-10-28 15:34:00 2017-10-28 15:34:00 Emergency [facility] [id number] 2017-10-28 15:28:57 2017-10-28 15:28:57 Emergency [facility] [id number] 2017-10-28 15:04:37 2017-10-28 15:04:37 Emergency [facility] [id number]
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
[2018-05-06 22:45] LABS: BASOPHILS % 0.4 % (0.0-1.0); EOSINOPHILS # (AUTO) 0.3 (0.0-0.4); EOSINOPHILS % 6.1 % (0.0-6.0); HEMATOCRIT 41.9 % (34.2-44.1); HEMOGLOBIN 14.5 g/dL (12.0-16.0); LYMPHOCYTES # (AUTO) 2.1 (1.0-3.2); LYMPHOCYTES % 41.6 % (18.0-39.1); MEAN CORPUSCULAR HEMOGLOBIN 31.7 pg (28-32); MEAN CORPUSCULAR HGB CONC 34.6 g/dL (31-35); MEAN CORPUSCULAR VOLUME 91.7 fL (81-99); MONOCYTES # (AUTO) 0.3 (0.2-0.8); MONOCYTES % 5.1 % (4.4-11.3); NEUTROPHILS # (AUTO) 2.3 (2.1-6.9); NEUTROPHILS % 46.6 % (38.7-80.0); PLATELET COUNT 252 x10e3/uL (140-360); RED BLOOD COUNT 4.57 x10e6/uL (3.6-5.1); RED CELL DISTRIBUTION WIDTH 11.6 % (11.7-14.4)
[2018-05-06] MEDS ORDERED: LIDOCAINE HCL 2% JELLY 5 ML TUBE TOP ONE (22:45)
[2018-05-06] MEDS ORDERED: LIDOCAINE JELLY 2% 10ML URO-JET ONE (22:45)
[2018-05-06] MEDS ORDERED: DIATRIZOATE MEGL/DIATRIZOA SOD 30 ML BTL PO ONE (22:53)
[2018-05-06 23:01] LABS: CLARITY,URINE SL CLOUDY (CLEAR); COLOR,URINE YELLOW (YELLOW)
[2018-05-06 23:02] LABS: BILIRUBIN,URINE NEGATIVE (NEGATIVE); KETONES,URINE NEGATIVE (NEGATIVE); LEUKOCYTE ESTERASE ,URINE NEGATIVE (NEGATIVE); NITRITE,URINE NEGATIVE (NEGATIVE); PROTEIN,URINE DIPSTICK NEGATIVE (NEGATIVE); URINE UROBILINOGEN 0.2 mg/dL (0.2 - 1)
[2018-05-06 23:04] LABS: ALANINE AMINOTRANSFERASE 10 IU/L (0-55); ALBUMIN 4.3 g/dL (3.5-5.0); ALBUMIN/GLOBULIN RATIO 1.7 (0.8-2.0); ALKALINE PHOSPHATASE 47 IU/L (40-150); ANION GAP 16.3 mmol/L (8-16); BLOOD UREA NITROGEN 20 mg/dL (7-26); BUN/CREATININE RATIO 28 (6-25); CALCIUM 8.5 mg/dL (8.4-10.2); CARBON DIOXIDE 23 mmol/L (22-29); CHLORIDE 105 mmol/L (98-107); CREATININE, SERUM 0.71 mg/dL (0.57-1.11); EST GLOMERULAR FILTRATION RATE > 60 ML/MIN (60-); GLUCOSE 100 mg/dL (74-118); LIPASE 46 U/L (8-78); POTASSIUM 4.3 mmol/L (3.5-5.1); SODIUM 140 mmol/L (136-145)
[2018-05-06 23:09] LABS: BACTERIA,URINE FEW /HPF; EPITHELIAL CELLS,URINE FEW /LPF; MUCUS,URINE MANY (RARE); WBC,URINE (MAN) 0-5 /HPF (0-5)
[2018-05-06] MEDS ORDERED: PROMETHAZINE HCL (IM) 25 MG/ML VIAL IM ONE (23:30)
[2018-05-06] MEDS ORDERED: IOPAMIDOL 370 MG/ML 200 ML INFUS..BTL INJ ONE (23:57)
[2018-05-06] MEDS ORDERED: SODIUM CHLORIDE 0.9% 50ML 50 ML ONE (23:57)
[2018-05-07] MEDS ORDERED: FENTANYL CITRATE/PF 100MCG/2 ML INJ IV ONE (00:45)
--- NOTE | 2018-05-07 00:51 | Diagnostic Imaging Report ---
EXAM: CT ABDOMEN AND PELVIS with IV CONTRAST INDICATION: Abdominal pain, nausea and vomiting, diarrhea, colonoscopy with polyp removal May 01, 2018 COMPARISON: None TECHNIQUE: The abdomen and pelvis were scanned using a multidetector helical scanner. Coronal and sagittal reformations were obtained. Dose modulation, iterative reconstruction, and/or weight based adjustment of the mA/kV was utilized to reduce the radiation dose to as low as reasonably achievable. Routine protocol performed. IV Contrast: 100 cc Isovue-370 Oral Contrast: Gastrografin FINDINGS: LOWER THORAX: No consolidations LIVER: Subcentimeter hypodensities that are too small to characterize, likely cysts. BILIARY: The gallbladder is unremarkable. No ductal dilation. SPLEEN: No masses PANCREAS: No masses ADRENALS: No nodules KIDNEYS: Symmetric perfusion. No enhancing masses. No hydronephrosis. GI TRACT: No distention, wall thickening or evidence of obstruction. Oral contrast is seen in the stomach, proximal and mid small bowel. Normal appendix. VESSELS: Unremarkable PERITONEUM/RETROPERITONEUM: No free air or fluid LYMPH NODES: No lymphadenopathy REPRODUCTIVE ORGANS: The uterus is not visualized. No adnexal masses. BLADDER: Unremarkable SOFT TISSUES: Mild subcutaneous stranding left buttock, likely from injection site. BONES: No suspicious bone lesions. IMPRESSION: No acute CT findings to explain patient's symptoms. Signed by: Dr. Elva Reed M.D. on 05/07/2018 12:46 AM
[2018-05-07] MEDS ORDERED: ZOFRAN4 MG SL (00:58)
[2018-05-07 01:26] VITALS: BP 100/67
[2018-05-07 02:15] LABS: PREGNANCY TEST, URINE NEGATIVE (NEGATIVE)
== END 2018-05-07 01:30 | disposition home or self-care (01) ==
LOC: ER 22:29
DX: R10.84 Generalized abdominal pain (principal); Z86.010 Personal history of colon polyps; Z98.890 Other specified postprocedural states
CPT/HCPCS: 36415; 74177; 80053; 81001; 81025; 83690; 85025; 96374; 99284; J1885; J2405; J2550; J7030; Q9663; Q9967

== ENCOUNTER 2019-10-29 22:35 | Emergency (ER) | payer OTHER ==
[~2019-10-29] VITALS: Ht 152.4 cm; Wt 54.4 kg
[~2019-10-29 22:35] MED LIST: ZOFRAN4 MG SL
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
--- OUTSIDE RECORDS SUMMARY | 2019-10-29 22:39 | XMS REPORT | Summary of Care ---
Author Author CLIFF Potts M.A. Organization Unknown Address Unknown Phone Unavailable Care Team Providers Care Product Ambassador Name Role Phone MANAN FLETCHER M.D. Unavailable Unavailable Nithya Potts M.A. Unavailable Unavailable Unavailable Unavailable Functional Status Name Dates Details Functional status health issues are not documented Status: Name Dates Details Cognitive status health issues are not d ocumented Status: Problems Name Dates Details Convulsions, unspecified [...] Name Dates Details aspirin (Allergy) Reaction: Fever (Sev ere), Fatigue (Severe), Rash (Severe) Status: Active morphine (Allergy) Reaction: Fever (Sev ere), Fatigue (Severe), Rash (Severe) Status: Active Past Medical History Name Dates Details History of Right handed Status: Resolved History of seizure (V12.49, Z87.898) Status: Resolved Procedures Procedure Dates Details History of Hysterectomy Completed Immunization Name Dates Details Immunizations not documented Family History Name Dates Details Family history of diabetes mellitus (V18 .0, Z83.3) Status: Active Name Dates Details Family history of hypertension (V17.49, Z82.49) Status: Active Name Dates Details Family history of hypertension (V17.49, Z82.49) Status: Active Family history of High cholesterol (272. 0, E78.00) Status: Active Name Dates Details Family history of hypertension (V17.49, Z82.49) Status: Active Social History Name Dates Details Unknown if ever smoked Vital Signs Date Test Result Details [id number] BP Systolic 134 mm[Hg] Status: BP Diastolic 80 mm[Hg] Status: Height 60 in Status: Weight 112 lb Status: Body Mass Index Calculated 21.87 kg/m2 Status: Body Surface Area Calculated 1.46 m2 Status: Heart Rate 73 /min Status: O2 SAT 100 % Status: Results Date Description Value Details Results not documented Plan of Care Name Dates Details Planned Observations Planned Goals not documented Planned Encounters Appointment; MANAN FLETCHER M.D. On: 16-Jan-2018 8:30 Instructions Name Dates Details Instructions not documented Encounters Appointment; MANAN FLETCHER M.D. Encounter Diagnosis: Problem not documented On: 13-Nov-2017 8:30
--- OUTSIDE RECORDS SUMMARY | 2019-10-29 22:39 | XMS REPORT | Continuity of Care Document ---
Author Author [employer] [facility] [employer] Address Unknown Phone Unavailable Care Team Providers Care Endodontist Name Role Phone [facility] Information Exchange Unavailable Un available Problems Problem Status Onset Date Classification Date Reported Comments Source CONVULSIONS Active 11/15/2017 [facility] Muscle weakness (generalized) 10/08/2016 10/11/2016 [facility] STROKE SYMPTOMS Active 10/08/2016 [facility] Discharge Diagnosis: Abdominal pain, LLQ 08/04/2016 08/07/2016 [facility] Discharge Diagnosis: Nausea and vomiting 08/04/2016 08/07/2016 [facility] Discharge Diagnosis: Acute diarrhea 08/04/2016 08/07/2016 [facility] VOMITING, DIARRHEA Active 08/03/2016 [facility] Discharge Diagnosis: Cyst, ovarian 06/22/2016 06/25/2016 [facility] ABDOMINAL PAIN, NAUSIA Active 06/21/2016 [facility] Discharge Diagnosis: Abdominal pain 04/10/2016 04/13/2016 [facility] Discharge Diagnosis: Moderate nausea and vomiting 04/10/2016 04/13/2016 [facility] VOMITING,HEADACK,EAR PAIN Acti ve 04/09/2016 [facility] Discharge Diagnosis: Constipation 04/07/2016 04/10/2016 [facility] Discharge Diagnosis: Bacterial vaginosis 04/07/2016 04/10/2016 [facility] LOWER ABDOMINAL PAIN/ VOMITING Active 04/07/2016 [facility] OTHER Active 06/19/2014 [facility] Malignant neoplastic disease (disorder) Resolved Problem 11/26/2017 [facility] Transient ischemic attack (disorder) Resolved Problem 09/2017 [facility] Medications Medication Details Route Status Patient Instructions Ordering Provider Order Date Source Tylenol Notes: Do not exceed 4 gm/day. (Same as: Tylenol) Inactive 10/09/2016 [facility] Zofran ODT Notes: (Same as: Zo aleyda ODT) Inactive 10/09/2016 [facility] Ibuprofen 400 mg, Route: PO, D rug form: TAB, ONCE, Dosing Weight 50, kg, Priority: STAT, Start date: 10/08/16 20:07:00 CDT, Stop date: 10/08/16 20:07:00 CDT Inactive 10/09/2016 [facility] nter Sodium Chloride 0.154 MEQ/ML Injectable Solution 1,000 mL, 1,000 ml/hr, Infuse Over: 1 hr, Route: IV, 1,000, Drug form: INJ, ONCE, Priority: STAT, Dosing Weight 50 kg, Start date: 10/08/16 18:44:00 CDT, Duration: 1 doses or times, Stop date: 10/08/16 18:44:00 CDT Inactive 10/08/2016 [facility] Iohexol 150 mL, Route: IVP, Dr ug Form: SOLN, Dosing Weight 50, kg, ONCALL, STAT, Start date: 10/08/16 18:35:00 CDT, Duration: 1 doses or times, Dose = 2.2ml/kg, Max dose = 100ml -- "To be infused by Radiol[employer] Staff ONLY" Inactive 10/08/2016 [facility] Acetaminophen 300 MG / Codeine Phosphate 30 MG Oral Tablet [Tylenol with Codeine #3] 1 tab, PO, Q4H, PRN Pain, # 24 tab, 0 Re fill(s) Inactive 08/04/2016 [facility] Ondansetron 4 MG Disintegrating Tablet [Zofran] 4 mg = 1 tab, PO, Q8H, PRN Nausea and Vomiting, Dissolve tab under tongue, # 10 tab, 0 Refill(s) Inactive 08/04/2016 [facility] tramadol hydrochloride 50 MG Oral Tablet 50 mg, PO, Q4- 6H, PRN Pain, X 4 day, # 20 tab, 0 Refill(s) Active 08/04/2016 [facility] Acetaminophen 325 MG / Hydrocodone [place] trate 5 MG Oral Tablet Notes: (Same as: [place] 325/5) Do not ex ceed 4gm/day of acetaminophen. Inactive 08/04/2016 [facility] Ketorolac 4 days MEDICA TION WASTE Product Size: 30 mg Product Wasted: ___ mg Inactive 08/04/2016 [facility] Sodium Chloride 0.154 MEQ/ML Injectable Solution 1,000 mL, 1000 ml/hr, Infuse Over: 1 hr, Route: IV, 1,000, Drug form: INJ, ONCE, Priority: STAT, Dosing Weight 50 kg, Start date: 08/03/16 21:53:00 [place] RE[employer] TECHNICIAN, Duration: 1 doses or times, Stop date: 08/03/16 21:53:00 [place] REPAIR TECHNICIAN Inactive 08/04/2016 [facility] Ondansetron Notes: (Same as: Lois choudhary) MEDICATION WASTE Product Size: 4 mg Product Wasted: ___ mg Inactive 08/04/2016 [facility] Saline Flush 0.9% Notes: Same as: BD Posiflush Sterile No Longer Active 08/04/2016 [facility] tramadol hydrochloride 50 MG Oral Tablet 50 mg = 1 tab, PO, Q6H, PRN Pain, X 10 day, # 40 tab, 0 Refill(s) Active 06/22/2016 [facility] Zofran Notes: (Same as: Elizabeth ) MEDICATION WASTE Product Size: 4 mg Product Wasted: ___ mg Inactive 06/22/2016 [facility] Omnipaque 300 Notes: (Same as: Omnipaque 300). WASTE: F/P - Black; E - Municipal Trash Bin Inactive 06/22/2016 [facility] Zofran Notes: (Same as: Elizabeth ) MEDICATION WASTE Product Size: 4 mg Product Wasted: ___ mg Inactive 06/22/2016 [facility] Dilaudid Notes: Same as Dilaud id Inactive 06/22/2016 [facility] Sodium Chloride 0.154 MEQ/ML Injectable Solution 1,000 mL, 1,000 ml/hr, Infuse Over: 1 hr, Route: IV, 1,000, Drug form: INJ, ONCE, Priority: STAT, Dosing Weight 50 kg, Start date: 06/22/16 6:35:00 [place] REPAIR TECHNICIAN, Duration: 1 doses or times, Stop date: 06/22/16 6:35:00 [place] REPAIR TECHNICIAN Inactive 06/22/2016 [facility] Dicyclomine Hydrochloride 10 MG Oral Capsule [Bentyl] 10 mg = 1 cap, PO, QID-Before Meals, # 28 cap, 0 Refill(s) Active 04/10/2016 [facility] Ondansetron 4 MG Disintegrating Tablet [Zofran] 4 mg = 1 tab, PO, TID, Dissolve tab under tongue, X 3 day, # 9 tab, 0 Refill(s) Active 04/10/2016 [facility] tramadol hydrochloride 50 MG Oral Tablet [Ultram] Notes: Not to exceed 400mg/day. (Same As: Ultram) Inactive 04/10/2016 [facility] ketOROLAC 15 mg/mL injectable solution 15 mg, Route: IVP, Drug form: INJ, ONCE, Dosing Weight 50, kg, Priority: STAT, Start date: 04/10/16 0:46:00 CDT, Stop date: 04/10/16 0:46:00 CDT Inactive 04/10/2016 [facility] Phenergan Notes: Do not give I V push. (Same as: Phenergan) Inactive 04/10/2016 [facility] Sodium Chloride 0.154 MEQ/ML Injectable Solution 1,000 mL, 1,000 ml/hr, Infuse Over: 1 hr, Route: IV, 1,000, Drug form: INJ, ONCE, Priority: STAT, Dosing Weight 50 kg, Start date: 04/09/16 21:23:00 CDT, Duration: 1 doses or times, Stop date: 04/09/16 21:23:00 CDT Inactive 04/10/2016 [facility] Pepcid Notes: (Same as: Pepcid ) Can be dilute in 5-10cc NS IVP: Slow IV push over at least 2 minutes. Inactive 04/10/2016 [facility] Zofran Notes: (Same as: Zofran ) MEDICATION WASTE Product Size: 4 mg Product Wasted: ___ mg Inactive 04/10/2016 [facility] tramadol hydrochloride 50 MG Oral Tablet 50 mg = 1 tab, PO, Q8H, PRN Pain, X 5 day, # 15 tab, 0 Refill(s) Active 04/08/2016 [facility] Metronidazole 500 MG Oral Tablet [Flagyl] 500 mg = 1 tab, PO, BID, X 7 day, # 14 tab, 0 Refill(s) Active 04/08/2016 [facility] Dilaudid Notes: (Same as: Dila udid) Inactive 04/08/2016 [facility] Omnipaque 300 Notes: (Same as: Omnipaque 300). WASTE: F/P - Black; E - Municipal Trash Bin Inactive 04/08/2016 [facility] Sodium Chloride 0.154 MEQ/ML Injectable Solution 1,000 mL, 1,000 ml/hr, Infuse Over: 1 hr, Route: IV, 1,000, Drug form: INJ, ONCE, Priority: STAT, Dosing Weight 50 kg, Start date: 04/07/16 20:04:00 CDT, Duration: 1 doses or times, Stop date: 04/07/16 20:04:00 CDT Inactive 04/08/2016 [facility] Ketorolac 4 days MEDICA TION WASTE Product Size: 30 mg Product Wasted: ___ mg Inactive 04/08/2016 [facility] Ondansetron Notes: (Same as: Lois choudhary) MEDICATION WASTE Product Size: 4 mg Product Wasted: ___ mg Inactive 04/08/2016 [facility] Saline Flush 0.9% Notes: Same as: BD Posiflush Sterile No Longer Active 04/08/2016 [facility] Sodium Chloride 0.154 MEQ/ML Injectable Solution 1,000 mL, 2,000 ml/hr, Infuse Over: 30 minutes, Route: IV, 1,000, Drug form: INJ, ONCE, Priority: STAT, Dosing Weight 42.727 kg, Start date: 04/07/16 19:54:00 CDT, Duration: 1 doses or times, Stop date: 04/07/16 19:54:00 CDT Inactive 04/08/2016 [facility] Allergies, Adverse Reactions, Alerts Substance Category Reaction Severity Reaction type Status Date Reported Comments Source morphine Assertion Drug allergy Active [facility] aspirin Assertion Drug allergy Active [facility] Immunizations Immunization Date Given Site Status Last Updated Comments Source tetanus-diphtheria toxoids Left Deltoid completed [facility] tetanus-diphtheria toxoids Left Deltoid completed [facility] Results Order Name Results Value Reference Range Date Interpretation Comments Source CHEM PANEL Lactic Acid Lvl 0.6 0.5 - 2.2 10/09/2016 [facility] CHEM PANEL eGFR 91 10/08/2016 Result Comment: The eGFR is calculated [...] should be multiplied by the estimated BMI. [facility] CHEM PANEL POC Creatinine 0.8 0.5 - 1.4 10/08/2016 [facility] CARDIAC ENZYMES Troponin-I <0.02 0.00 - 0.40 10/08/2016 [facility] ELECTROLYTES AGAP 9.0 10.0 - 20.0 10/08/2016 [facility] ELECTROLYTES eGFR 84 10/08/2016 Result Comment: The eGFR is calculated [...] should be multiplied by the estimated BMI. [facility] ELECTROLYTES BUN 19 7 - 22 10/08/2016 [facility] ELECTROLYTES Glucose Lvl 92 70 - 99 10/08/2016 [facility] ELECTROLYTES Creatinine Lvl 0.8 6 0.50 - 1.40 10/08/2016 [facility] ELECTROLYTES Potassium Lvl 4.0 3.5 - 5.1 10/08/2016 [facility] ELECTROLYTES Sodium Lvl 139 135 - 145 10/08/2016 [facility] ELECTROLYTES CO2 27 24 - 32 10/08/2016 [facility] ELECTROLYTES Chloride Lvl 107 95 - 109 10/08/2016 [facility] ELECTROLYTES Calcium Lvl 8.9 8.5 - 10.5 10/08/2016 [facility] HEMATOLOGY RDW 12.5 11.5 - 14.5 10/08/2016 [facility] HEMATOLOGY MCHC 35.6 32.0 - 36.0 10/08/2016 [facility] HEMATOLOGY MCH 32.6 27.0 - 31.0 10/08/2016 [facility] HEMATOLOGY MPV 8.3 7.4 - 10.4 10/08/2016 [facility] HEMATOLOGY Platelet 223 133 - 450 10/08/2016 [facility] HEMATOLOGY WBC 5.6 3.7 - 10.4 10/08/2016 [facility] HEMATOLOGY Hct 38.5 36.0 - 48.0 10/08/2016 [facility] HEMATOLOGY Hgb 13.7 12.0 - 16.0 10/08/2016 [facility] HEMATOLOGY RBC 4.21 4.20 - 5.40 10/08/2016 [facility] HEMATOLOGY MCV 91.5 80.0 - 98.0 10/08/2016 [facility] HEMATOLOGY Basophils 0.8 0.0 - 1.0 10/08/2016 [facility] HEMATOLOGY Segs-Bands # 3.1 1.5 - 8.1 10/08/2016 [facility] HEMATOLOGY Eosinophils # 0.3 0.0 - 0.5 10/08/2016 [facility] HEMATOLOGY Monocytes # 0.3 0.0 - 0.8 10/08/2016 [facility] HEMATOLOGY Lymphocytes # 1.7 1.0 - 5.5 10/08/2016 [facility] HEMATOLOGY Monocytes 5.7 2.0 - 12.0 10/08/2016 [facility] HEMATOLOGY Lymphocytes 31.4 20.0 - 40.0 10/08/2016 [facility] HEMATOLOGY Eosinophils 5.5 0.0 - 4.0 10/08/2016 [facility] HEMATOLOGY Segs 56.6 45.0 - 75.0 10/08/2016 [facility] CHEM PANEL Lipase Lvl 202 73 - 393 08/04/2016 [facility] ELECTROLYTES AGAP 10.6 10.0 - 20.0 08/04/2016 [facility] ELECTROLYTES A/G Ratio 1.0 0.7 - 1.6 08/04/2016 [facility] ELECTROLYTES Globulin 3.3 2.7 - 4.2 08/04/2016 [facility] ELECTROLYTES B/C Ratio 30 6 - 25 08/04/2016 [facility] ELECTROLYTES eGFR 102 08/04/2016 Result Comment: The eGFR is calculated [...] be multiplied by the estimated BMI. [facility] ELECTROLYTES AST 16 0 - 37 08/04/2016 [facility] ELECTROLYTES Albumin Lvl 3.4 3.5 - 5.0 08/04/2016 [facility] ELECTROLYTES ALT 22 0 - 65 08/04/2016 [facility] ELECTROLYTES Total Protein 6.7 6.4 - 8.4 08/04/2016 [facility] ELECTROLYTES Alk Phos 48 39 - 136 08/04/2016 [facility] ELECTROLYTES Potassium Lvl 3.6 3.5 - 5.1 08/04/2016 [facility] ELECTROLYTES Chloride Lvl 106 95 - 109 08/04/2016 [facility] ELECTROLYTES Sodium Lvl 142 135 - 145 08/04/2016 [facility] ELECTROLYTES CO2 29 24 - 32 08/04/2016 [facility] ELECTROLYTES Calcium Lvl 8.0 8.5 - 10.5 08/04/2016 [facility] ELECTROLYTES Glucose Lvl 117 70 - 99 08/04/2016 [facility] ELECTROLYTES Creatinine Lvl 0.7 3 0.50 - 1.40 08/04/2016 [facility] ELECTROLYTES BUN 22 7 - 22 08/04/2016 [facility] ELECTROLYTES Bili Total 0.3 0.2 - 1.3 08/04/2016 [facility] ENDOCRINOLOGY S Preg Ne gative *NA* (08/03/16 9:21 PM) Negative 08/04/2016 [facility] HEMATOLOGY RDW 12.2 11.5 - 14.5 08/04/2016 [facility] HEMATOLOGY MCH 32.4 27.0 - 31.0 08/04/2016 [facility] HEMATOLOGY MCHC 35.1 32.0 - 36.0 08/04/2016 [facility] HEMATOLOGY MCV 92.5 80.0 - 98.0 08/04/2016 [facility] HEMATOLOGY Hct 36.3 36.0 - 48.0 08/04/2016 [facility] HEMATOLOGY RBC 3.92 4.20 - 5.40 08/04/2016 [facility] HEMATOLOGY Hgb 12.7 12.0 - 16.0 08/04/2016 [facility] HEMATOLOGY WBC 5.3 3.7 - 10.4 08/04/2016 [facility] HEMATOLOGY MPV 8.1 7.4 - 10.4 08/04/2016 [facility] HEMATOLOGY Platelet 218 133 - 450 08/04/2016 [facility] HEMATOLOGY Monocytes # 0.3 0.0 - 0.8 08/04/2016 [facility] HEMATOLOGY Eosinophils # 0.2 0.0 - 0.5 08/04/2016 [facility] HEMATOLOGY Lymphocytes # 2.2 1.0 - 5.5 08/04/2016 [facility] HEMATOLOGY Lymphocytes 40.6 20.0 - 40.0 08/04/2016 [facility] HEMATOLOGY Segs 49.2 45.0 - 75.0 08/04/2016 [facility] HEMATOLOGY Segs-Bands # 2.6 1.5 - 8.1 08/04/2016 [facility] HEMATOLOGY Basophils 0.4 0.0 - 1.0 08/04/2016 [facility] HEMATOLOGY Monocytes 5.1 2.0 - 12.0 08/04/2016 [facility] HEMATOLOGY Eosinophils 4.7 0.0 - 4.0 08/04/2016 [facility] URINE AND STOOL UA Amorph Audra Occasional /HPF None Seen /HPF 08/04/2016 [facility] URINE AND STOOL UA RBC 0-2 /HPF 0 - 2 08/04/2016 [facility] URINE AND STOOL UA Bacteria Few /HPF None Seen /HPF 08/04/2016 [facility] URINE AND STOOL UA Mucus Few /LPF None Seen /LPF 08/04/2016 [facility] URINE AND STOOL UA WBC 0-2 /HPF None Seen /HPF 08/04/2016 [facility] URINE AND STOOL UA Sq Epi Few /LPF Few /LPF 08/04/2016 [facility] URINE AND STOOL UA Nitrite Negative (08/03/16 9:21 PM) Negative 08/04/2016 [facility] URINE AND STOOL UA Urobilinogen 0.2 0.1 - 1.0 08/04/2016 [facility] URINE AND STOOL UA Blood Negative (08/03/16 9:21 PM) Negative 08/04/2016 [facility] URINE AND STOOL UA Bili Negative *NA* (08/03/16 9:21 PM) Negative 08/04/2016 [facility] URINE AND STOOL UA Ketones Negative mg/dL Negative mg/dL 08/04/2016 [facility] URINE AND STOOL UA Glucose Negative mg/dL Negative mg/dL 08/04/2016 [facility] URINE AND STOOL UA Protein Negative mg/dL Negative mg/dL 08/04/2016 [facility] URINE AND STOOL UA pH 8.0 5.0 - 8.0 08/04/2016 [facility] URINE AND STOOL UA Spec Grav 1.010 <=1.030 08/04/2016 [facility] URINE AND STOOL UA Turbidity Clear (08/03/16 9:21 PM) Clear 08/04/2016 [facility] URINE AND STOOL UA Leuk Est Negative (08/03/16 9:21 PM) Negative 08/04/2016 [facility] URINE AND STOOL UA Color Yellow *NA* (08/03/16 9:21 PM) Yellow 08/04/2016 [facility] CHEM PANEL Lipase Lvl 219 73 - 393 06/22/2016 [facility] CHEM PANEL B/C Ratio 36 6 - 25 06/22/2016 [facility] CHEM PANEL AGAP 12.7 10.0 - 20.0 06/22/2016 [facility] CHEM PANEL Globulin 3.0 2.7 - 4.2 06/22/2016 [facility] CHEM PANEL A/G Ratio 1.2 0.7 - 1.6 06/22/2016 [facility] CHEM PANEL eGFR 114 06/22/2016 Result Comment: The eGFR is calculated [...] be multiplied by the estimated BMI. [facility] CHEM PANEL Bili Total 0.4 0.2 - 1.3 06/22/2016 [facility] CHEM PANEL Chloride Lvl 108 95 - 109 06/22/2016 [facility] CHEM PANEL Calcium Lvl 8.3 8.5 - 10.5 06/22/2016 [facility] CHEM PANEL CO2 23 24 - 32 06/22/2016 [facility] CHEM PANEL Total Protein 6.5 6.4 - 8.4 06/22/2016 [facility] CHEM PANEL Albumin Lvl 3.5 3.5 - 5.0 06/22/2016 [facility] CHEM PANEL Alk Phos 51 39 - 136 06/22/2016 [facility] CHEM PANEL ALT 20 0 - 65 06/22/2016 [facility] CHEM PANEL AST 17 0 - 37 06/22/2016 [facility] CHEM PANEL Creatinine Lvl 0.58 0.50 - 1.40 06/22/2016 [facility] CHEM PANEL BUN 21 7 - 22 06/22/2016 [facility] CHEM PANEL Potassium Lvl 3.7 3.5 - 5.1 06/22/2016 [facility] CHEM PANEL Sodium Lvl 140 135 - 145 06/22/2016 [facility] CHEM PANEL Glucose Lvl 108 70 - 99 06/22/2016 [facility] ENDOCRINOLOGY S Preg Ne gative *NA* (06/22/16 6:23 AM) Negative 06/22/2016 [facility] HEMATOLOGY Eosinophils # 0.4 0.0 - 0.5 06/22/2016 [facility] HEMATOLOGY Lymphocytes 38.6 20.0 - 40.0 06/22/2016 [facility] HEMATOLOGY Monocytes 7.4 2.0 - 12.0 06/22/2016 [facility] HEMATOLOGY Eosinophils 7.5 0.0 - 4.0 06/22/2016 [facility] HEMATOLOGY Basophils 0.6 0.0 - 1.0 06/22/2016 [facility] HEMATOLOGY Segs-Bands # 2.3 1.5 - 8.1 06/22/2016 [facility] HEMATOLOGY Lymphocytes # 2.0 1.0 - 5.5 06/22/2016 [facility] HEMATOLOGY Monocytes # 0.4 0.0 - 0.8 06/22/2016 [facility] HEMATOLOGY Segs 45.9 45.0 - 75.0 06/22/2016 [facility] HEMATOLOGY MCH 32.2 27.0 - 31.0 06/22/2016 [facility] HEMATOLOGY Hct 38.3 36.0 - 48.0 06/22/2016 [facility] HEMATOLOGY MCV 93.2 80.0 - 98.0 06/22/2016 [facility] HEMATOLOGY RBC 4.11 4.20 - 5.40 06/22/2016 [facility] HEMATOLOGY Hgb 13.2 12.0 - 16.0 06/22/2016 [facility] HEMATOLOGY WBC 5.1 3.7 - 10.4 06/22/2016 [facility] HEMATOLOGY MCHC 34.6 32.0 - 36.0 06/22/2016 [facility] HEMATOLOGY RDW 12.8 11.5 - 14.5 06/22/2016 [facility] HEMATOLOGY Platelet 189 133 - 450 06/22/2016 [facility] HEMATOLOGY MPV 8.1 7.4 - 10.4 06/22/2016 [facility] URINE AND STOOL UA WBC 0-2 /HPF None Seen /HPF 06/22/2016 [facility] URINE AND STOOL UA RBC 3-5 /HPF 0 - 2 06/22/2016 [facility] URINE AND STOOL UA Bacteria Moderate /HPF None Seen /HPF 06/22/2016 [facility] URINE AND STOOL UA Mucus Few /LPF None Seen /LPF 06/22/2016 [facility] URINE AND STOOL UA Sq Epi Many /LPF Few /LPF 06/22/2016 [facility] URINE AND STOOL UA Color Yellow *NA* (06/22/16 6:23 AM) Yellow 06/22/2016 [facility] URINE AND STOOL UA Turbidity Slight Cloudy (12/29/16 6:23 AM) Clear 06/22/2016 [facility] [facility] URINE AND STOOL UA pH 5.5 5.0 - 8.0 06/22/2016 [facility] URINE AND STOOL UA Spec Grav >=1.030 *ABN* (06/22/16 6:23 AM) <=1.030 06/22/2016 [facility] URINE AND STOOL UA Glucose Negative (06/22/16 6:23 AM) Negative 06/22/2016 [facility] URINE AND STOOL UA Protein Negative (06/22/16 6:23 AM) Negative 06/22/2016 [facility] URINE AND STOOL UA Bili Negative *NA* (06/22/16 6:23 AM) Negative 06/22/2016 [facility] URINE AND STOOL UA Blood Small *ABN* (06/22/16 6:23 AM) Negative 06/22/2016 [facility] URINE AND STOOL UA Ketones Negative *NA* (06/22/16 6:23 AM) Negative 06/22/2016 [facility] URINE AND STOOL UA Leuk Est Negative (06/22/16 6:23 AM) Negative 06/22/2016 [facility] URINE AND STOOL UA Urobilinogen 0.2 0.1 - 1.0 06/22/2016 [facility] URINE AND STOOL UA Nitrite Negative (06/22/16 6:23 AM) Negative 06/22/2016 [facility] CHEM PANEL Lipase Lvl 152 73 - 393 04/10/2016 [facility] ELECTROLYTES AGAP 9.8 10.0 - 20.0 04/10/2016 [facility] ELECTROLYTES B/C Ratio 24 6 - 25 04/10/2016 [facility] ELECTROLYTES A/G Ratio 1.1 0.7 - 1.6 04/10/2016 [facility] ELECTROLYTES Globulin 3.5 2.7 - 4.2 04/10/2016 [facility] ELECTROLYTES eGFR 70 04/10/2016 Result Comment: The eGFR is calculated [...] be multiplied by the estimated BMI. [facility] ELECTROLYTES Bili Total 0.3 0.2 - 1.3 04/10/2016 [facility] ELECTROLYTES Total Protein 7.4 6.4 - 8.4 04/10/2016 [facility] ELECTROLYTES Albumin Lvl 3.9 3.5 - 5.0 04/10/2016 [facility] ELECTROLYTES ALT 20 0 - 65 04/10/2016 [facility] ELECTROLYTES AST 12 0 - 37 04/10/2016 [facility] ELECTROLYTES Alk Phos 61 39 - 136 04/10/2016 [facility] ELECTROLYTES CO2 29 24 - 32 04/10/2016 [facility] ELECTROLYTES Calcium Lvl 8.8 8.5 - 10.5 04/10/2016 [facility] ELECTROLYTES Glucose Lvl 93 70 - 99 04/10/2016 [facility] ELECTROLYTES Creatinine Lvl 0.9 9 0.50 - 1.40 04/10/2016 [facility] ELECTROLYTES BUN 24 7 - 22 04/10/2016 [facility] ELECTROLYTES Sodium Lvl 141 135 - 145 04/10/2016 [facility] ELECTROLYTES Potassium Lvl 3.8 3.5 - 5.1 04/10/2016 [facility] ELECTROLYTES Chloride Lvl 106 95 - 109 04/10/2016 [facility] HEMATOLOGY Platelet 219 133 - 450 04/10/2016 [facility] HEMATOLOGY MCHC 33.7 32.0 - 36.0 04/10/2016 [facility] HEMATOLOGY MCH 31.4 27.0 - 31.0 04/10/2016 [facility] HEMATOLOGY MPV 8.7 7.4 - 10.4 04/10/2016 [facility] HEMATOLOGY Hct 41.7 36.0 - 48.0 04/10/2016 [facility] HEMATOLOGY RDW 12.7 11.5 - 14.5 04/10/2016 [facility] HEMATOLOGY MCV 93.2 80.0 - 98.0 04/10/2016 [facility] HEMATOLOGY Hgb 14.1 12.0 - 16.0 04/10/2016 [facility] HEMATOLOGY RBC 4.48 4.20 - 5.40 04/10/2016 [facility] HEMATOLOGY WBC 5.5 3.7 - 10.4 04/10/2016 [facility] HEMATOLOGY Monocytes # 0.3 0.0 - 0.8 04/10/2016 [facility] HEMATOLOGY Eosinophils # 0.3 0.0 - 0.5 04/10/2016 [facility] HEMATOLOGY Basophils 0.6 0.0 - 1.0 04/10/2016 [facility] HEMATOLOGY Segs-Bands # 3.2 1.5 - 8.1 04/10/2016 [facility] HEMATOLOGY Lymphocytes # 1.7 1.0 - 5.5 04/10/2016 [facility] HEMATOLOGY Monocytes 5.4 2.0 - 12.0 04/10/2016 [facility] HEMATOLOGY Eosinophils 5.6 0.0 - 4.0 04/10/2016 [facility] HEMATOLOGY Segs 58.4 45.0 - 75.0 04/10/2016 [facility] HEMATOLOGY Lymphocytes 30.0 20.0 - 40.0 04/10/2016 [facility] URINE AND STOOL UA Protein Negative mg/dL Negative mg/dL 04/10/2016 [facility] URINE AND STOOL UA Glucose Negative mg/dL Negative mg/dL 04/10/2016 [facility] URINE AND STOOL UA pH 7.0 5.0 - 8.0 04/10/2016 [facility] URINE AND STOOL UA Turbidity Slight Cloudy (04/09/16 10:06 PM) Clear 04/10/2016 [facility] URINE AND STOOL UA Spec Grav 1.020 <=1.030 04/10/2016 [facility] URINE AND STOOL UA Blood Negative (04/09/16 10:06 PM) Negative 04/10/2016 [facility] URINE AND STOOL UA Bili Negative *NA* (04/09/16 10:06 PM) Negative 04/10/2016 [facility] URINE AND STOOL UA Ketones Trace mg/dL Negative mg/dL 04/10/2016 [facility] URINE AND STOOL UA Nitrite Negative (04/09/16 10:06 PM) Negative 04/10/2016 [facility] URINE AND STOOL UA Urobilinogen 0.2 0.1 - 1.0 04/10/2016 [facility] URINE AND STOOL UA Leuk Est Negative (04/09/16 10:06 PM) Negative 04/10/2016 [facility] URINE AND STOOL UA Color Yellow *NA* (04/09/16 10:06 PM) Yellow 04/10/2016 [facility] URINE AND STOOL UA WBC 0-2 /HPF None Seen /HPF 04/10/2016 [facility] URINE AND STOOL UA Sq Epi Many /LPF Few /LPF 04/10/2016 [facility] URINE AND STOOL Micro? Performed (04/09/16 10:06 PM) 04/10/2016 [facility] URINE AND STOOL UA Mucus Rare /LPF None Seen /LPF 04/10/2016 [facility] URINE AND STOOL UA Bacteria Occasional /HPF None Seen /HPF 04/10/2016 [facility] URINE AND STOOL UA RBC 0-2 /HPF 0 - 2 04/10/2016 [facility] URINE AND STOOL UA Amorph Audra Occasional /HPF None Seen /HPF 04/10/2016 [facility] URINE AND STOOL UA Bacteria Occasional /HPF None Seen /HPF 04/08/2016 [facility] URINE AND STOOL UA RBC 0-2 /HPF 0 - 2 04/08/2016 [facility] URINE AND STOOL UA WBC 0-2 /HPF None Seen /HPF 04/08/2016 [facility] URINE AND STOOL UA Sq Epi Moderate /LPF Few /LPF 04/08/2016 [facility] URINE AND STOOL UA Urobilinogen 0.2 0.1 - 1.0 04/08/2016 [facility] URINE AND STOOL UA Nitrite Negative (04/07/16 9:07 PM) Negative 04/08/2016 [facility] URINE AND STOOL UA Bili Negative *NA* (04/07/16 9:07 PM) Negative 04/08/2016 [facility] URINE AND STOOL UA Blood Negative (04/07/16 9:07 PM) Negative 04/08/2016 [facility] URINE AND STOOL UA Glucose Negative mg/dL Negative mg/dL 04/08/2016 [facility] URINE AND STOOL UA Spec Grav 1.015 <=1.030 04/08/2016 [facility] URINE AND STOOL UA pH 8.5 5.0 - 8.0 04/08/2016 [facility] URINE AND STOOL UA Leuk Est Negative (04/07/16 9:07 PM) Negative 04/08/2016 [facility] URINE AND STOOL UA Protein Negative mg/dL Negative mg/dL 04/08/2016 [facility] URINE AND STOOL UA Ketones Negative mg/dL Negative mg/dL 04/08/2016 [facility] URINE AND STOOL UA Turbidity Clear (04/07/16 9:07 PM) Clear 04/08/2016 [facility] URINE AND STOOL UA Color Yellow *NA* (04/07/16 9:07 PM) Yellow 04/08/2016 [facility] CHEM PANEL Lipase Lvl 272 73 - 393 04/08/2016 [facility] CHEM PANEL A/G Ratio 1.1 0.7 - 1.6 04/08/2016 [facility] CHEM PANEL Globulin 3.6 2.7 - 4.2 04/08/2016 [facility] CHEM PANEL AGAP 11.9 10.0 - 20.0 04/08/2016 [facility] CHEM PANEL B/C Ratio 24 6 - 25 04/08/2016 [facility] CHEM PANEL eGFR 80 04/08/2016 Result Comment: The eGFR is calculated [...] be multiplied by the estimated BMI. [facility] CHEM PANEL Bili Total 0.2 0.2 - 1.3 04/08/2016 [facility] CHEM PANEL Alk Phos 66 39 - 136 04/08/2016 [facility] CHEM PANEL AST 18 0 - 37 04/08/2016 [facility] CHEM PANEL ALT 24 0 - 65 04/08/2016 [facility] CHEM PANEL Albumin Lvl 3.8 3.5 - 5.0 04/08/2016 [facility] CHEM PANEL Total Protein 7.4 6.4 - 8.4 04/08/2016 [facility] CHEM PANEL Calcium Lvl 9.1 8.5 - 10.5 04/08/2016 [facility] CHEM PANEL Chloride Lvl 106 95 - 109 04/08/2016 [facility] CHEM PANEL CO2 27 24 - 32 04/08/2016 [facility] CHEM PANEL Creatinine Lvl 0.89 0.50 - 1.40 04/08/2016 [facility] CHEM PANEL Sodium Lvl 141 135 - 145 04/08/2016 [facility] CHEM PANEL Potassium Lvl 3.9 3.5 - 5.1 04/08/2016 [facility] CHEM PANEL Glucose Lvl 88 70 - 99 04/08/2016 [facility] CHEM PANEL BUN 21 7 - 22 04/08/2016 [facility] HEMATOLOGY MCH 32.1 27.0 - 31.0 04/08/2016 [facility] HEMATOLOGY Hct 41.0 36.0 - 48.0 04/08/2016 [facility] HEMATOLOGY MCV 92.6 80.0 - 98.0 04/08/2016 [facility] HEMATOLOGY MCHC 34.6 32.0 - 36.0 04/08/2016 [facility] HEMATOLOGY Platelet 258 133 - 450 04/08/2016 [facility] HEMATOLOGY RDW 12.5 11.5 - 14.5 04/08/2016 [facility] HEMATOLOGY MPV 9.2 7.4 - 10.4 04/08/2016 [facility] HEMATOLOGY Hgb 14.2 12.0 - 16.0 04/08/2016 [facility] HEMATOLOGY RBC 4.42 4.20 - 5.40 04/08/2016 [facility] HEMATOLOGY WBC 6.5 3.7 - 10.4 04/08/2016 [facility] HEMATOLOGY PT 12.3 12.0 - 14.7 04/08/2016 [facility] HEMATOLOGY INR 0.90 0.85 - 1.17 04/08/2016 [facility] HEMATOLOGY PTT 30.1 22.9 - 35.8 04/08/2016 [facility] HEMATOLOGY Segs 52.2 45.0 - 75.0 04/08/2016 [facility] HEMATOLOGY Monocytes 5.6 2.0 - 12.0 04/08/2016 [facility] HEMATOLOGY Lymphocytes 36.3 20.0 - 40.0 04/08/2016 [facility] HEMATOLOGY Eosinophils 5.2 0.0 - 4.0 04/08/2016 [facility] HEMATOLOGY Lymphocytes # 2.4 1.0 - 5.5 04/08/2016 [facility] HEMATOLOGY Segs-Bands # 3.4 1.5 - 8.1 04/08/2016 [facility] HEMATOLOGY Eosinophils # 0.3 0.0 - 0.5 04/08/2016 [facility] HEMATOLOGY Monocytes # 0.4 0.0 - 0.8 04/08/2016 [facility] HEMATOLOGY Basophils 0.7 0.0 - 1.0 04/08/2016 [facility] Pathology Reports No Data Provided for This Section Diagnostic Reports Report Value Date Source Brain wo contrast MRI MRI OF T HE BRAIN DATE: 10/08/2016 at 7:19 PM COMPARISON: [...] noted. IMPRESSION: 1. No acute intracranial abnormality. Th ere is no acute hemorrhage or acute infarct. 2. 5 mm nonspecific focus of increased T 2 and FLAIR signal within the right frontal subcortical white matter, most consistent with chronic small vessel ischemic disease. Such white matter signal abnormalities are frequently seen in patients with migraine headaches. Resident preliminary report by Dr. Shadia Ambriz: IMPRESSION: No acute abnormality. 5 mm subcortical T2 hyperintensity in the right frontal lobe is nonspecific. Otherwise, the brain is normal. [place] SECTION: Neuro 10/08/2016 [facility] Chest/Abd/Pelvis CTA EXAM: CTA CHEST WITH CONTRAST [...] within the chest, abdomen or pelvis. 10/08/2016 [facility] Brain/Neck Stroke perfusion CTA EXAM: CTA BRAIN EXAM: CTA NECK EXAM: CT PERFUSION BRAIN DATE: 10/08/2016 at 6:19 PM CDT INDICATION: left sided weakness - left sided weakness COMPARISON: CT brain 10/08/2016 at 6:09 PM. TECHNIQUE: - Dynamic CT perfusion images on a limit ed area of the brain parenchyma are performed during bolus injection of iodinated contrast material. Color maps of relative cerebral blood flow, relative cerebral blood volume, time to peak, and mean transit time are created on an independent workstation and are submitted along with the source image data. -Rapid acquisition spiral CT images of t he brain and neck were obtained between the [...] Normal CT perfusion. (All qualitative and quantitative assess ments of carotid bifurcation and proximal internal carotid artery stenosis are made referencing the distal internal carotid artery {NASCET criteria}.) Resident preliminary report by Dr. Shadia Ambriz: IMPRESSION: No acute vascular abnormality. [place] SECTION: Neuro 10/08/2016 [facility] Brain wo contrast CT CT HEAD W ITHOUT CONTRAST DATE: 10/08/2016 at 6:09 PM. COMPARISON: [...] intact. IMPRESSION: 1. No acute intracranial abnormality, no rmal CT scan of the brain. Resident preliminary report by Dr. Anthony Mace: IMPRESSION: No acute intracranial abnormality UT SECTION: Neuro 10/08/2016 [facility] Pelvis w Transvag and Pelvis Doppler US [...] blood flow. 3. Resolution of large previously identi fied large left ovarian cyst. 4. Hysterectomy. SL: WPFESARAHI 08/03/2016 [facility] Pelvis w Transvag and Pelvis Doppler US [...] No evidence of torsion. 3. Hysterectomy. SL: [id number] 06/22/2016 [facility] Abdomen/Pelvis w IV contrast CT Study: CT ABDOMEN AND PELVIS WITH CONTRAST Clinical Indication: Left lower quadrant pain since yesterday; Comparison: CT abdomen pelvis 04/07/2016 Technique: Axial images with sagittal and coronal reconstructions were obtained following nonionic intravenous contrast, Omnipaque [address] Radiation Dose: DLP = 719.95 mGy-cm. FINDINGS: The lung bases are clear. [...] adnexal cyst. 2. Constipation. 3. Hysterectomy. SL: [id number] 06/22/2016 [facility] ED Abdomen/Pelvis IV contrast only CT Patient Name: CLIFF VALENZUELA : 1975; Age: 40 years Female MR: [id number] Study: ED Abdomen/Pelvis IV contrast only CT [...] Normal appendix. 3. Indeterminate liver lesions too smal l to accurately characterize. SL: CRISTINO 04/07/2016 [facility] Abdomen 2 views DX Study: Abdo men 2 views DX 04/07/2016 7:54 PM CDT Patient Name: CLIFF VALENZUELA MR: [id number] : 1975; Age: 40 years y/o Female [...] IMPRESSION: 1. Nonspecific bowel gas pattern. SL: GEOVANNA 04/07/2016 [facility] Consultation Notes No Data Provided for This Section Discharge Summaries No Data Provided for This Section History and Physicals No Data Provided for This Section Vital Signs Vital Sign Value Date Comments Source Systolic (mm Hg) 97 10/09/2016 [facility] Diastolic (mm Hg) 63 10/09/2016 [facility] Temperature Oral (F) 96.8 F 10/09/2016 [facility] Respitory Rate 17 10/09/2016 [facility] Respitory Rate 16 10/09/2016 [facility] Systolic (mm Hg) 110 10/09/2016 [facility] Diastolic (mm Hg) 75 10/09/2016 [facility] Systolic (mm Hg) 128 10/09/2016 [facility] Diastolic (mm Hg) 85 10/09/2016 [facility] Respitory Rate 20 10/09/2016 [facility] Temperature Oral (F) 97.4 F 10/08/2016 [facility] Heart Rate 61 10/08/2016 [facility] Heart Rate 63 10/08/2016 [facility] Heart Rate 76 10/08/2016 [facility] Height 152.4 cm 10/08/2016 [facility] Weight 50 0 10/08/2016 [facility] BMI Calculated 21.53 10/08/2016 [facility] Respitory Rate 20 08/04/2016 [facility] Systolic (mm Hg) 116 08/04/2016 [facility] Diastolic (mm Hg) 71 08/04/2016 [facility] Heart Rate 75 08/04/2016 [facility] Temperature Oral (F) 97.7 F 08/04/2016 [facility] Weight 50 0 08/04/2016 [facility] Heart Rate 72 08/04/2016 [facility] Systolic (mm Hg) 141 08/04/2016 [facility] Diastolic (mm Hg) 95 08/04/2016 [facility] [...] Rate 75 06/22/2016 [facility] Weight 50 1 08/23/2015 [facility] Temperature Oral (F) 98.1 F [...] Hg) 85 04/10/2016 [facility] Weight 50 1 [facility] Height 152.4 cm 04/10/2016 [facility] Heart Rate 67 04/10/2016 [facility] Temperature Oral (F) 98.3 F 04/10/2016 [facility] Respitory Rate 18 04/10/2016 [facility] BMI Calculated 21.53 04/10/2016 [facility] Systolic (mm Hg) 123 04/10/2016 [facility] Diastolic (mm Hg) 79 04/10/2016 [facility] Temperature Oral (F) 98.0 F 04/08/2016 [facility] Diastolic (mm Hg) 86 04/08/2016 [facility] Systolic (mm Hg) 145 04/08/2016 [facility] Respitory Rate 18 04/08/2016 [facility] Heart Rate 67 04/08/2016 [facility] Weight 50 1 [facility] BMI Calculated 21.53 04/08/2016 [facility] Height 152.4 cm 04/08/2016 [facility] Respitory Rate 19 04/08/2016 [facility] Heart Rate 65 04/08/2016 [facility] Temperature Oral (F) 97.5 F 04/08/2016 [facility] Systolic (mm Hg) 133 04/08/2016 [facility] Diastolic (mm Hg) 77 04/08/2016 [facility] Encounters Location Location Details Encounter Type Encounter Number Reason For Visit Attending Provider ADM Date DC Date Status Source [facility] Emergency [id number] Shankar Bowman 04/08/2016 04/08/2016 [facility] Emergency [id number] Devendra Cheatham 04/10/2016 04/10/2016 [facility] Emergency [id number] Bryan Joon 06/22/2016 06/22/2016 [facility] Emergency [id number] Mohan Wu 08/04/2016 08/04/2016 [facility] Emergency [id number] Yomi Maloney 10/08/2016 10/09/2016 [facility] Outpatient [id number] Darian Villalta 11/23/2017 11/24/2017 [facility] Procedures Procedure Code Date Perfomer Comments Source Abdominal hysterectomy [id number] [facility] Tonsillectomy [id number] [facility] Assessment and Plan No Data Provided for This Section Plan of Care No Data Provided for This Section Social History Social History Date Source Social History TypeResponse Substance Abuse Use: Past. Type: Cocaine. Recreational Drug Route: Inhaled. Smoking Status Former smoker; Type: Cigarettes; Previous treatment: Counseling; Ready to change: No; Concerns about tobacco use in household: No; Lives with someone who smokes; Cigarette Smoking Last 365 Days Yes; Reg Smoking Cessation Counseling No entered on: 10/08/16 04/08/2016 [facility] Social History TypeResponse Substance Abuse Use: Past. Type: Cocaine. Recreational Drug Route: Inhaled. Smoking Status Never smoker; Type: Cigarettes; Previous treatment: None; Ready to change: No; Concerns about tobacco use in household: No; Exposure to Tobacco Smoke None; Cigarette Smoking Last 365 Days No; Reg Smoking Cessation Counseling No 04/08/2016 [facility] Family History No Data Provided for This Section Advance Directives No Data Provided for This Section Functional Status No Data Provided for This Section
[2019-10-29] MEDS ORDERED: ONDANSETRON HCL INJ 2MG/ML 2ML 2 MG/ML VIAL IV STA (23:03)
[2019-10-29] MEDS ORDERED: KETOROLAC TROMETHAMINE 30 MG/ML VIAL IV STA (23:03)
[2019-10-29] MEDS ORDERED: SODIUM CHLORIDE 0.9% 1000ML 1,000 ML ONE (23:12)
[2019-10-29] MEDS ORDERED: ONDANSETRON HCL INJ 2MG/ML 2ML 2 MG/ML VIAL ONE (23:12)
[2019-10-29] MEDS ORDERED: KETOROLAC TROMETHAMINE 30 MG/ML VIAL ONE (23:12)
[2019-10-29] MEDS ORDERED: SODIUM CHLORIDE 0.9% 1000ML 1,000 ML IV SCH (23:15)
[2019-10-29] MEDS ORDERED: PROMETHAZINE HCL (IM) 25 MG/ML VIAL ONE (23:30)
[2019-10-29] MEDS ORDERED: PROMETHAZINE 25MG/ NS 50ML (IV) IV ONE (23:30)
[2019-10-30] MEDS ORDERED: PHENERGAN SUPP25 MG RC (00:24)
[2019-10-30] MEDS ORDERED: ONDANSETRON ODT8 MG PO (00:24)
--- NOTE | 2019-10-30 01:29 | Diagnostic Imaging Report ---
EXAM: CT Abdomen and Pelvis WITHOUT contrast INDICATION: ^pain left sided COMPARISON: Abdominal CT 05/06/2018 TECHNIQUE: Abdomen and pelvis were scanned utilizing a multidetector helical scanner from the lung base to the pubic symphysis without administration of IV contrast. Absence of intravenous contrast decreases sensitivity for detection of focal lesions and vascular pathology. Coronal and sagittal reformations were obtained. Routine protocol was performed. IV CONTRAST: None ORAL CONTRAST: None COMPLICATIONS: None RADIATION DOSE: Total DLP: 386 mGy*cm Estimated effective dose: (DLP x 0.015 x size factor) mSv CTDIvol has been reviewed. It is below the limits set by the Radiation Protocol Committee (RPC). Dose modulation, iterative reconstruction, and/or weight based adjustment of the mA/kV was utilized to reduce the radiation dose to as low as reasonably achievable. FINDINGS: LINES and TUBES: None. LOWER THORAX: Unremarkable HEPATOBILIARY: A few stable tiny hypodensities within the liver compared to 05/07/2018, likely benign. No biliary ductal dilation. GALLBLADDER: No radio-opaque stones or sludge. No wall thickening. SPLEEN: No splenomegaly. PANCREAS: No focal masses or ductal dilatation. ADRENALS: No adrenal nodules KIDNEYS/URETERS: No hydronephrosis. No cystic or solid mass lesions. No stones. GI TRACT: No abnormal distention, wall thickening, or evidence of bowel obstruction. Appendix is normal. PELVIC ORGANS/BLADDER: Hysterectomy. No adnexal masses. Urinary bladder unremarkable. LYMPH NODES: Stable mildly enlarged mesenteric root lymph nodes compared to 05/06/2018, largest measures 1.5 cm in short axis) series 2 image 32). VESSELS: Unremarkable. PERITONEUM / RETROPERITONEUM: No free air or fluid. BONES: Partial lumbarization of S1. SOFT TISSUES: Unremarkable. IMPRESSION: Stable mildly enlarged mesenteric root lymph nodes compared to 05/06/2018. Recommend follow-up abdominal CT with contrast in 6 months. Signed by: Anand Sosa DO on 10/30/2019 1:26 AM
== END 2019-10-30 01:48 | disposition home or self-care (01) ==
LOC: FSED 22:35
DX: R10.32 Left lower quadrant pain (principal); R10.12 Left upper quadrant pain; R11.2 Nausea with vomiting, unspecified; R19.7 Diarrhea, unspecified; R51 Headache
CPT/HCPCS: 74176; 80053; 81003; 85025; 99284; J1885; J2405; J2550; J7030

== ENCOUNTER 2019-12-25 22:10 | Emergency (ER) | payer OTHER ==
[~2019-12-25] VITALS: Ht 152.4 cm; Wt 54.4 kg
[~2019-12-25 22:10] MED LIST changes: +ONDANSETRON ODT8 MG PO; +PHENERGAN SUPP25 MG RC
[2019-12-25] MEDS ORDERED: ONDANSETRON HCL INJ 2MG/ML 2ML 2 MG/ML VIAL IV STA (22:33)
[2019-12-25] MEDS ORDERED: PROMETHAZINE 12.5MG/ NACL 0.9% 12.5 MG/50 ML BAG IV ONE (22:45)
[2019-12-25] MEDS ORDERED: PROMETHAZINE HCL (IM) 25 MG/ML VIAL ONE (23:14)
[2019-12-25] MEDS ORDERED: ONDANSETRON HCL INJ 2MG/ML 2ML 2 MG/ML VIAL ONE (23:14)
[2019-12-25] MEDS ORDERED: SODIUM CHLORIDE 0.9% 50ML 50 ML ONE (23:14)
[2019-12-25] MEDS ORDERED: SODIUM CHLORIDE 0.9% 1000ML 1,000 ML ONE (23:14)
[2019-12-26] MEDS ORDERED: ONDANSETRON HCL INJ 2MG/ML 2ML 2 MG/ML VIAL IV STA (00:16)
[2019-12-26] MEDS ORDERED: SODIUM CHLORIDE 0.9% 1000ML 1,000 ML IV STA (00:16)
[2019-12-26] MEDS ORDERED: ONDANSETRON HCL INJ 2MG/ML 2ML 2 MG/ML VIAL ONE (00:16)
--- NOTE | 2019-12-26 00:17 | Diagnostic Imaging Report ---
EXAMINATION: CXR 1 [facility] INDICATION: ^pain ^[id number] ^[id number] COMPARISON: None FINDINGS: TUBES and LINES: None. LUNGS: Lungs are well inflated. Lungs are clear. There is no evidence of pneumonia or pulmonary edema. PLEURA: No pleural effusion or pneumothorax. HEART AND MEDIASTINUM: The cardiomediastinal silhouette is unremarkable. BONES AND SOFT TISSUES: No acute osseous lesion. Soft tissues are unremarkable. UPPER ABDOMEN: No free air under the diaphragm. IMPRESSION: No acute thoracic radiographic abnormality. Signed by: Jem Wood MD on 12/26/2019 12:14 AM
--- NOTE | 2019-12-26 00:46 | Emergency Department Note ---
History of Present Illnes History of Present Illness Chief Complaint: Abdominal Complaints History of Present Illness This is a 44 year old female Chief Complaint Comment CHOKING ON FOOD./ESOPHAGUS PAIN SINCE SUNDAY-OFF/ON...HX OF SAME PROBLEM SINCE 2018. BEING TREATED BY Dyllan HARO Historian: Patient Arrival Mode: Car Onset (how long ago): day(s) (4) Location: epigastric Quality: dull Radiation: Denies non-radiation, Denies back, Denies neck, Denies extremity, Denies abdomen, Denies periumbilical, Denies flank, Denies proximal, Denies distal, Denies other Severity: moderate Onset quality: gradual Duration (how long): day(s) (4) Timing of current episode: intermittent Progression: waxing and waning Chronicity: recurrent Context: Denies recent illness, Denies recent surgery, Denies recent immobilization, Denies recent travel, Denies trauma/injury, Denies new medications, Denies hx of DVT/PE, Denies non-compliance w/ medications, Denies other Relieving factors: none Exacerbating factors: none Associated symptoms: Reports nausea/vomiting; Denies denies other symptoms, Denies confusion, Denies chest pain, Denies cough, Denies diaphoresis, Denies fever/chills, Denies headaches, Denies loss of appetite, Denies malaise, Denies rash, Denies seizure, Denies shortness of breath, Denies syncope, Denies weakness, Denies other Treatments prior to arrival: none Past Medical/Family History Physician Review I have reviewed the patient's past medical and family history. Any updates have been documented here. Past Medical History Recent Fever: No Clinical Suspicion of Infectio: No New/Unexplained Change in Ment: No Past Medical History: Depression, GERD Past Surgical History: Hysterectomy, T&A Other Surgery: COLONSCOPY 05/01/18 Social History Smoking Cessation: Never Smoker Counseling Performed: No Alcohol Use: None Any Illegal Drug Use: No Other Last Tetanus: UTD Any Pre-Existing Lines (PICC,: No Review of Systems Review of Systems Constitutional: Reports no symptoms EENTM: Reports no symptoms Cardiovascular: Reports no symptoms Respiratory: Reports no symptoms Gastrointestinal: Reports no symptoms Genitourinary: Reports no symptoms Musculoskeletal: Reports no symptoms Integumentary: Reports no symptoms Neurological: Reports no symptoms Psychological: Reports no symptoms Endocrine: Reports no symptoms Hematological/Lymphatic: Reports no symptoms Physical Exam Related Data Allergies: Coded Allergies: aspirin (Verified Allergy, Intermediate, 05/06/18) morphine (Verified Allergy, Intermediate, 05/06/18) Triage Vital Signs Vital Signs Date Time Temp Pulse Resp B/P (MAP) Pulse Ox O2 Delivery O2 Flow Rate FiO2 12/25/19 22:55 98.7 80 18 137/91 100 Room Air Vital signs reviewed: Yes Physical Exam CONSTITUTIONAL Constitutional: Present well-developed, Present well-nourished HENT HENT: Present normocephalic, Present atraumatic, Present oropharynx clear/moist, Present nose normal HENT L/R: Present left ext ear normal, Present right ext ear normal EYES Eyes: Reports PERRL, Reports conjunctivae normal NECK Neck: Present ROM normal PULMONARY Pulmonary: Present effort normal, Present breath sounds normal CARDIOVASCULAR Cardiovascular: Present regular rhythm, Present heart sounds normal, Present capillary refill normal, Present normal rate GASTROINTESTINAL Abdominal: Present soft, Present nontender, Present bowel sounds normal GENITOURINARY Genitourinary: Present exam deferred SKIN Skin: Present warm, Present dry MUSCULOSKELETAL Musculoskeletal: Present ROM normal NEUROLOGICAL Neurological: Present alert, Present oriented x 3, Present no gross motor or sensory deficits PSYCHOLOGICAL Psychological: Present mood/affect normal, Present judgement normal Results Laboratory Lab results reviewed: Yes Assessment & Plan Medical Decision Making MDM esophageal spasm..obstruction Reassessment Reassessment time: 00:37 Reassessment better Assessment & Plan Final Impression: (1) Diffuse esophageal spasm (2) Vomiting Depart Disposition: HOME, SELF-CARE Last Vital Signs Date Time Temp Pulse Resp B/P (MAP) Pulse Ox O2 Delivery O2 Flow Rate FiO2 12/25/19 22:55 98.7 80 18 137/91 100 Room Air Home Meds Active Scripts Promethazine Hcl* (PHENERGAN SUPP*) 25 Mg Supp, 12.5 MG RC TID PRN for vomiting for 3 Days, #10 Prov:JAKE SANCHEZ MD 10/30/19 Ondansetron (ONDANSETRON ODT) 8 Mg Tab.rapdis, 4 MG PO TID PRN for vo for 3 Days, #10 Prov:JAKE SANCHEZ MD 10/30/19 Ondansetron Hcl* (ZOFRAN*) 4 Mg Tablet, 4 MG SL Q6H PRN for NAUSEA, #14 MG 0 Refills Prov:YOSELIN CHAN, 05/07/18 Medications in the ED Ondansetron HCl 4 mg NOW STAT IV Last administered on 12/25/19at 23:18; Admin Dose 4 MG; Start 12/25/19 at 22:33; Stop 12/25/19 at 22:34; Status UNV Promethazine HCl 25 mg STK-MED ONCE .ROUTE ; Start 12/25/19 at 23:14; Stop 12/25/19 at 23:09; Status DC Sodium Chloride 50 ml @ ud STK-MED ONCE .ROUTE ; Start 12/25/19 at 23:14; Stop 12/25/19 at 23:09; Status DC Sodium Chloride 1,000 ml @ ud STK-MED ONCE .ROUTE ; Start 12/25/19 at 23:14; Stop 12/25/19 at 23:09; Status DC Ondansetron HCl 4 mg NOW STAT IV ; Start 12/26/19 at 00:16; Stop 12/26/19 at 00:17; Status UNV Sodium Chloride 1,000 ml @ 0 mls/hr Q0M STAT IV ; Start 12/26/19 at 00:16; Stop 12/26/19 at 00:32; Status DC URSULA PORTER MD Dec 26, 2019 00:45
[2019-12-26 00:53] VITALS: BP 119/78
== END 2019-12-26 00:52 | disposition home or self-care (01) ==
LOC: FSED 22:20
DX: K22.4 Dyskinesia of esophagus (principal); R10.13 Epigastric pain; R11.2 Nausea with vomiting, unspecified; F32.9 Major depressive disorder, single episode, unspecified; K21.9 Gastro-esophageal reflux disease without esophagitis
CPT/HCPCS: 71045; 80048; 80076; 85025; 96365; 96374; 96376; 99284; J2405 ×2; J2550; J7030 ×2